=== PATIENT | male | born 1940 | race Caucasian/White ===

== ENCOUNTER 2017-06-29 12:24 | Inpatient (IN) | payer OTHER ==
[~2017-06-29] VITALS: Ht 172.7 cm; Wt 68.0 kg
[2017-06-29] VITALS (10 sets, daily range): BP systolic 96–126; BP diastolic 62–80
--- NOTE | ~2017-06-29 | EKG ---
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: sanket : 1940 Requested By: Amos Nicholas Order Number: [id number] MD: Amos Nicholas Measurements Intervals [place] Rate: 112 P: -47 CO: 156 QRS: -50 QRSD: 102 T: 83 QT: 351 QTc: 479 Interpretive Statements Sinus tachycardia Left anterior fascicular block Borderline low voltage, extremity leads Abnormal R-wave progression, late transition Probable left ventricular hypertrophy Borderline prolonged QT interval Baseline wander in lead(s) V4,V5,V6 Compared to ECG 07/01/2017 18:20:19 Supraventricular tachycardia is no longer present Electronically Signed On 07-08-2017 8:11:17 CDT by Amos Nicholas [email or web address] <ELECTRONICALLY SIGNED> By: Amos Nicholas MD, [facility] 07/08/17810 1 1 Amos Nicholas MD, [facility] /EPI
--- NOTE | ~2017-06-29 | HC ---
[facility] [place] [address] CONSULTATION Name: PURA LINDSEY Room #: [facility] IN M.R.#: [id number] Admission: 06/29/17 Attend Phys: Breanna Hdz MD Discharge: Date of : 40 Report #: [id number] THIS REPORT FOR: //name// CC: Pura Giraldo [facility] PRIMARY CARE PHYSICIAN: Dr. Pura Giraldo. REFERRAL PHYSICIAN: Dr. Hdz. REASON FOR REFERRAL: Acute respiratory failure. HISTORY OF PRESENT ILLNESS: The patient is a 77-year-old white male who was transferred from [facility] for altered mental status and progressive hypoxia. A pulmonary consultation is requested. History was obtained from interview from the patient's family including the who is a good historian. The patient's son also works at [employer] who was able to provide good history. According to family, the patient has had some weight loss ever since his heart surgery in 2012. notes that the patient never had an appetite since the surgery. For the past 6 months, the patient has complaints of progressive dyspnea on exertion along with progressive weight loss of approximately 10 pounds. He was seen by GI. Colonoscopy was not done, but a year ago was unremarkable. He continued to have dysphagia. In May 2017, he was seen by Dr. Cornelius Winslow for progressive dyspnea. A CT chest revealed htmw-[id number] right-sided pleural effusion, mild infiltrates. PFTs revealed restrictive ventilatory defect. 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 Echocardiogram and cardiac evaluation was felt to be unremarkable. The patient was not felt to be in heart failure. With worsening dyspnea and cough, the patient presented to [facility] yesterday. This morning, around 10:00 a.m., the patient's mental status was abnormal. He was less responsive. For that reason, the patient was transferred to [facility]. With the neurologic change, a CT head was performed earlier today. CT head showed increased densities seen in the left basal ganglia. There is decreased attenuation involving the right frontal lobe consistent with an old lacunar infarct. The left basal ganglia changes suggest possible parenchymal [address] [address] CONSULTATION Name: PURA LINDSEY Room #: 245-P ADM IN M.R.#: [id number] Admission: 06/29/17 Attend Phys: Breanna Hdz MD Discharge: Date of : 40 Report #: [id number] hemorrhage. Recommend an MRI. CT chest angiogram was also performed yesterday. This showed no evidence of pulmonary embolus, right lower lobe infiltrates, moderate right-sided pleural effusion is seen, mediastinal lymphadenopathy and hilar adenopathy was noted. Primary interstitial markings were also noted. Presently, he is arousable at times, but appears lethargic, tolerating BiPAP at saturation 100%. PAST MEDICAL HISTORY: As mentioned above, coronary artery disease, coronary bypass surgery in 2012 at [facility], chronic dysphagia since heart surgery, hypertension, dyslipidemia, gastroesophageal reflux disease, recurrent nephrolithiasis, restrictive ventilatory defect from recent pulmonary functions, FEV1 measured 1.25 liters at 46% predicted, FVC measured 1.42 liters at 37% predicted, FEV1/FVC ratio 88%. Recent echocardiogram from 2016 revealed ejection fraction of 50%, grade 2 diastolic dysfunction, bioprosthetic aortic valve, pulmonary artery pressure at 30 mmHg. PAST SURGICAL HISTORY: Includes aortic valve replacement in 2013, coronary artery bypass surgery as mentioned above, prior knee surgery, lithotripsy, eye surgery. ALLERGIES: None. HOME MEDICATIONS: List reviewed. This includes aspirin, Lipitor, Toprol-XL, multivitamins. FAMILY HISTORY: Notable for mother at the age of 79 due to pain cancer. Father had heart disease. SOCIAL HISTORY: The patient has smoked about 30 pack years, quitting in 1981. He is . Denies any alcohol use. REVIEW OF SYSTEMS: Deferred as the patient is on BiPAP along with altered mental status. Additional review of systems should also include recent onset of lower extremity edema when the patient went on a vacation recently. PHYSICAL EXAMINATION: GENERAL: He is arousable, but appears to me somnolent. VITAL SIGNS: Temperature is 99 degrees Fahrenheit, pulse is 100, respiratory rate ____, blood pressure is 120/76 mmHg, saturation 100%. Saturation on room air at [facility] was 78%. HEENT: Normocephalic, atraumatic. NECK: Supple, without any lymphadenopathy or thyromegaly. CHEST: Breath sounds are fair with few scattered crackles in the bases. No [address] [address] CONSULTATION Name: PURA LINDSEY Room #: 245-P [facility] IN M.R.#: [id number] Admission: 06/29/17 Attend Phys: Breanna Hdz MD Discharge: Date of : 40 Report #: [id number] wheezes. CARDIOVASCULAR: PMI is increased at the left lower sternal border. Normal S1, S2. There are no murmurs. I could not hear any gallop. Pulses 2+/4+ bilaterally. ABDOMEN: Soft, no masses felt. GENITOURINARY: Deferred. RECTAL: Deferred. EXTREMITIES: There is no edema, cyanosis or clubbing. MUSCULOSKELETAL: Notable for moderate muscle atrophy. LABORATORY DATA: Portable chest x-ray performed here shows bilateral pleural effusion, ____ sternotomy wires are noted, mild increase I pulmonary vascular markings along with bibasilar infiltrates. D-dimer is 3.2. TSH is 0.63. ABG is pending. Laboratory from [facility] include an arterial blood gas of pH 7.32, pCO2 69, pO2 113 on 2 liters of O2. WBC was 6700, hemoglobin 14.7, platelets are normal. Creatinine is normal. IMPRESSION: 1. Progressive dyspnea on exertion, weakness and apparent weight loss in this 77-year-old white male. CT has suggested possible infarct, possible hemorrhage. There is an old lacunar infarct as mentioned above. The patient has chronic dyspepsia following his heart surgery. Cause is unclear, but with the constellation of symptoms, this suggests neurologic cause rather than primary pulmonary or cardiac cause. He certainly has pulmonary pathology, but I do not think it could explain chronicity of his symptoms. Of note, the patient was seen by GI for possible occult neoplasm workup. This was felt to be less likely. 2. Qkxrk-gq-dzickvo hypercapnic hypoxic respiratory failure. Note that, the patient is partial compensated with a pCO2 of 69. This suggests that weakness is primary cause for his hypoventilation. 3. Bilateral infiltrates, effusion. Note that some of this effusion on the right has been chronic. I favor more heart failure rather than pneumonia, though cannot rule out pneumonia. Need to consider aspiration and Gram-negative in this patient. 4. Weakness. As mentioned above, CT head shows some abnormalities. We will need MRI and consult Neurology. 5. Status post bioprosthetic aortic valve, 2013. [facility] [address] [place] [address] CONSULTATION Name: PURA LINDSEY Room #: 245-P ADM IN ..#: [id number] Admission: 06/29/17 Attend Phys: Breanna Hdz MD Discharge: Date of : 40 Report #: [id number] 6. Coronary artery disease, status post coronary artery bypass surgery. Echocardiogram report from [facility] on 05/14/2017 showed an ejection fraction of 40%, LV function is moderately decreased. RECOMMENDATION: We will continue BiPAP for now. If the patient does not stabilize or worsens, he may need to be intubated. Consult Neurology, obtain MRI. Would treat for presumed pneumonia, but would need to cover for possible aspiration or Gram-negative. We will also continue gentle diuresis. A CT chest has been recently performed showing moderate pleural effusion. I think this is chronic, but may need diagnostic thoracentesis if clinically the patient does not stabilize. Discussed in detail regarding above with the family. Thank you for this consultation. <ELECTRONICALLY SIGNED> By: Krunal Boss MD 06/30/17 1240 1651 51 Krunal Boss MD /nt
--- NOTE | ~2017-06-29 | EKG ---
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1940 Requested By: Amos Nicholas Order Number: [id number] MD: Amos Nicholas Measurements Intervals [place] Rate: 155 P: 0 SC: 112 QRS: -63 QRSD: 101 T: 109 QT: 290 QTc: 466 Interpretive Statements Supraventricular tachycardia Left anterior hemiblock Poor R wave progression Compared to ECG 04/10/2013 08:46:23 supraventricular tachycardia is replaced sinus rhythm Electronically Signed On 07-02-2017 8:48:21 CDT by Amos Nicholas [email or web address] <ELECTRONICALLY SIGNED> By: Amos Nicholas MD, [facility] 0848 19 19 Amos Nicholas MD, [facility] /EPI
--- NOTE | ~2017-06-29 | HC ---
[facility] [place] [address] CONSULTATION Name: PURA LINDSEY Room #: 245-P [facility] IN M.R.#: [id number] Admission: 06/29/17 Attend Phys: Breanna Hdz MD Discharge: Date of : 40 Report #: [id number] THIS REPORT FOR: //name// CC: Pura Hdz DATE OF SERVICE: 07/02/2017 HISTORY OF PRESENT ILLNESS: The patient is a 77-year-old white male admitted through [facility] with increased shortness of breath, was noted to have pneumonia, bilateral pleural effusions, respiratory failure, congestive heart failure. He was unresponsive. Neurology saw him and an MRI confirmed an acute right parietal stroke. He is noted dysphagia with aspiration risk and is on nectar-thickened liquids. He is currently in the intensive care unit on BiPAP. He has had problems with respiratory failure, qyaij-xg-mdxmiqp diastolic heart failure, severe pulmonary hypertension and pleural effusion. We are seeing him in rehabilitation medicine consultation. PAST MEDICAL HISTORY: Includes kidney stone removal, prior coronary artery bypass grafting, history of atrial fibrillation, hypertension, and right rotator cuff surgery. He has had multiple kidney stones. HABITS: Tobacco greater than one year, has quit alcohol, only on special occasion. FAMILY HISTORY: Heart disease and lung disease. SOCIAL HISTORY: Lives in a house with his , did not utilize gait aids, was active as they went camping, and he like to go fishing. Son is closely involved and apparently lives next door. He notes that the would be able to be give some assistance if warranted. REVIEW OF SYSTEMS: Did not offer any current complaints of chest pain, shortness of breath or abdominal discomfort. He is currently on the BiPAP. He has a strong just like for the nectar-thickened liquid diet. No focal extremity pain complaints. PHYSICAL EXAMINATION: GENERAL: He is a 77-year-old white male seen in the intensive care unit, BiPAP is in place. He is alert. VITAL SIGNS: Temperature is 98.2, pulse 121, respirations 13, blood pressure 107/74. HEENT: Facies appeared to be symmetric. EOMs are full. EXTREMITIES: She has functional range of motion of the upper and lower extremities. Of note is the fact that he is left handed. He has full strength without focal weakness of the right upper and right lower extremity. Left [address] [address] CONSULTATION Name: PURA LINDSEY Room #: Count includes the [facility] IN .R.#: [id number] Admission: 06/29/17 Attend Phys: Breanna Hdz MD Discharge: Date of : 40 Report #: [id number] extremity may be more of a 4-4-/5, left lower extremity 4-4-/5. DTRs are trace to 1. He does have bit in consistent when I attempted sensory testing with simultaneous stimulation. Functionally, he did get up yesterday, was min assist with sit to stand and did ambulate up to 40 feet handheld assistance, but was noted to have significant balance, decreased with rectal, pulse and concern for fall potential. He is dependent for lower extremity dressing. Appears to have decreased inside into his deficits and is obvious showing some frustration. ASSESSMENT: A 77-year-old white male with the following problems: 1. Acute right parietal stroke. 2. Dysphagia with aspiration risk on nectar-thickened liquids. 3. Some left-sided decreased coordination. 4. Gait instability with retropulsed tendency and decreased balance. 5. Hypoxemic hypercapnic respiratory failure with aspiration. 6. Acute on chronic diastolic heart failure. 7. Severe pulmonary hypertension. 8. Pleural effusions. 9. Chronic obstructive pulmonary disease. 10. Coronary artery disease with prior coronary artery bypass grafting. 11. History of kidney stones. PLAN: We will be glad to follow along regarding his rehabilitation therapy needs, as he further medically stabilizes in the ICU. He certainly may be a candidate for a short acute in-hospital inpatient rehabilitation stay, once further stabilized. The multiple guidance consultant physicians including Pulmonary Medicine, Cardiology, Internal Medicine Neurology, and Gastroenterology could all follow with him while he is on the acute rehab buenrostro. At this point, we will be glad to follow along with you regarding his rehabilitation therapy needs. ADDENDUM: He does have aortic stenosis and has had a bioprosthetic valve. By: 1038 0022 Diallo Galdamez MD /
--- NOTE | ~2017-06-29 | EEG ---
[facility] [place] [address] ELECTROENCEPHALOGRAM Name: PURA LINDSEY Room #: 245-P ADM IN M.R.#: [id number] Admission: 06/29/17 Attend Phys: Breanna Hdz MD Discharge: Date of : 40 Report #: [id number] THIS REPORT FOR: //name// CC: Pura Hdz DATE OF SERVICE: 06/30/2017 This patient is being evaluated for altered mental status. EEG was done by placing the electrode by standard 10-20 system of electrode placement. Both referential and sequential montages were used for recording. Background activity in this patient's EEG goes to about 11 Hz and 30 microvolts. This is a symmetrical activity. The patient goes to sleep that is associated with bilateral slowing and vertex sharp waves on both sides. Photic stimulation is unremarkable. Throughout the record, no active epileptiform activity was noticed. IMPRESSION: Except for mild intermixed theta range slowing this EEG was unremarkable. Thank you very much for this referral. <ELECTRONICALLY SIGNED> By: Matheus Forrester MD 07/03/17 1416 0820 0826 Matheus Forrester MD /nt
--- NOTE | ~2017-06-29 | 2DMMODE ---
[facility] [place] [address] 2 D/M-MODE ECHOCARDIOGRAM Name: PURA LINDSEY Room #: 245-P ADM IN .R.#: [id number] Admission: 06/29/17 Attend Phys: Breanna Hdz MD Discharge: Date of : 40 Date of Service: 06/30/17 0954 Report #: [id number] THIS REPORT FOR: //name// APPROVED REPORT Study performed: 06/30/2017 08:17:27 EXAM: Comprehensive 2D, Doppler, and color-flow Echocardiogram Patient Location: ICU Room #: [facility] Status: routine BSA: 1.81 HR: 112 bpm BP: 115/68 mmHg Rhythm: Tachycardia Other Information Study Quality: Good Indications CHF. Hx: CABG, AVR, COPD, PHTN 2D Dimensions RVDd: 39.15 mm LVEF(%): 41.82 (>50%) IVSd: 9.65 (7-11mm) LVOT Diam: 19.58 (18-24mm) LVDd: 47.44 mm PWd: 9.65 (7-11mm) Ascending Ao: 29.24 (22-36mm) LVDs: 37.72 (25-40mm) Aortic Root: 31.92 mm Fox's LVEF: 41.82 % Volumes Left Atrial Volume (Systole) Single Plane 4CH: 73.27 mL Single Plane 2CH: 57.79 mL LA ESV Index: 39.00 mL/m2 Aortic Valve AoV Peak Aristeo.: 2.89 m/s AO Peak Gr.: 33.37 mmHg LVOT Max P.82 mmHg AO Mean Gr.: 17.87 mmHg AO V2 Mean: 2.03 m/s LVOT Max V: 0.98 m/s AO V2 VTI: 47.14 cm ZOHAIB Vmax: 1.02 cm2 Mitral Valve [facility] [place] [address] 2 D/M-MODE ECHOCARDIOGRAM Name: PURA LINDSEY Room #: 245-P [facility]..#: [id number] Admission: 06/29/17 Attend Phys: Breanna Hdz MD Discharge: Date of : 40 Date of Service: 06/30/17 0954 Report #: [id number] MV Decel. Time: 213.35 ms MV E Max Aristeo.: 1.74 m/s IVRT: 43.83 ms Pulmonary Valve PV Peak Aristeo.: 1.41 m/s PV Peak Gr.: 7.90 mmHg Pulmonary Vein P Vein S: 0.26 m/s P Vein D: 0.40 m/s P Vein S/D Ratio: 0.65 Tricuspid Valve TR Peak Aristeo.: 3.86 m/s RAP Estimate: 10.00 mmHg TR Peak Gr.: 59.67 mmHg PA Pressure: 70.00 mmHg Left Ventricle The left ventricle is normal size. Regional wall motion is not well visualized but grossly normal. There is normal left ventricular wall thickness. Left ventricular systolic function is at lower limits of normal. LVEF is 45-50%. This study is not technically sufficient to allow evaluation of the LV diastolic function. Right Ventricle The right ventricle is normal size. The right ventricular systolic function is low normal. Atria Left atrium is dilated. Right atrium is dilated. Aortic Valve Bioprosthetic aortic valve is present. Size and manufacture unknown. Peak velocity of 2.9m/s with a peak gradient of 34mmHg and a mean of 17mmHg. Trace aortic regurgitation. Mitral Valve Mitral valve leaflets are mildly thickened. Mild mitral annular calcification. Moderate mitral regurgitation. Tricuspid Valve The tricuspid valve is normal in structure. There is moderate tricuspid regurgitation. The right atrial pressure is estimated at 10 mmHg. There is severe pulmonary hypertension with an estimated PAP of 70mmHg. [address] [address] 2 D/M-MODE ECHOCARDIOGRAM Name: PURA LINDSEY Room #: 245-P [facility] IN ..#: [id number] Admission: 06/29/17 Attend Phys: Breanna Hdz MD Discharge: Date of : 40 Date of Service: 06/30/17 0954 Report #: [id number] Pulmonic Valve The pulmonary valve is normal in structure. Mild pulmonic regurgitation. Great Vessels The aortic root is normal in size. The ascending aorta is normal in size. IVC is normal in size and collapses <50% with inspiration. Pericardium No pericardial effusion <Conclusion> Left ventricular systolic function is at lower limits of normal. Regional wall motion is not well visualized but grossly normal. LVEF is 45-50%. Both atria are dilated. Bioprosthetic aortic valve is present. Peak velocity of 2.9m/s with a peak gradient of 34mmHg and a mean of 17mmHg, probably normal depending on type and size of valve. Trace aortic regurgitation. Mitral valve leaflets are mildly thickened. Mild mitral annular calcification. Moderate mitral regurgitation. There is severe pulmonary hypertension with an estimated PAP of 70mmHg. No pericardial effusion <ELECTRONICALLY SIGNED> By: Amos Nicholas MD, FACC 06/30/17 0954 0954 09 Amos Nicholas MD, FACC /INF
--- NOTE | ~2017-06-29 | P ---
[facility] [place] [address] PROCEDURE REPORT Name: PURA LINDSEY Room #: 458-P [facility] IN M.R.#: [id number] Admission: 06/29/17 Attend Phys: Breanna Hdz MD Discharge: Date of : 40 Report #: [id number] THIS REPORT FOR: //name// CC: Amos Nicholas MD [facility] Pura Govea MD BRIEF HISTORY: The patient is a 77-year-old male with progressively worsening dysphagia with associated weight loss. He also has had a recent CVA. PREOPERATIVE DIAGNOSES: Dysphagia and weight loss. POSTOPERATIVE DIAGNOSES: Dysphagia and weight loss. MEDICATIONS: Deep sedation with propofol per anesthesia. SPECIMEN: None. ESTIMATED BLOOD LOSS: 3 mL. PROCEDURE: EGD with Nettles dilation of the esophagus and percutaneous endoscopic gastrostomy tube placement. FINDINGS: Prior to propofol sedation, the procedure of endoscopy, dilation, and PEG tube placement discussed with the patient and family as well as potential risks, benefits, and complications. He indicates he understands and desires to proceed. With the patient in left lateral decubitus position, the 5skillsi video endoscope was inserted in the cervical esophagus under direct vision without difficulty. Examination of this organ through its entire length revealed normal esophageal mucosa down to the squamocolumnar junction. Squamocolumnar junction was unremarkable. No strictures or masses were seen. No obstructing lesions were seen in the esophagus. No abnormalities to explain dysphagia were identified. Scope was advanced into the stomach, which was examined on end view as well as retroflexed views. The gastric mucosa was normal on end view as well as retroflexed views. No retained solids or liquids were seen. No mass lesions were seen. No ulcers were seen. Pylorus was normal. Duodenal bulb and postbulbar sweep were inspected and noted to be within normal limits. At that point, the scope was slowly withdrawn and careful circumferential views were obtained. Subsequently, the patient was dilated with passage of a 60-Hebrew Nettles dilator. The dilator was very slowly passed through the entire length of the esophagus. This patient was then placed in the supine position with head and chest raised about 20 degrees. The endoscope was reinserted and the esophagus through its entire length revealed mucosa be intact. There was no evidence of significant mucosal tearing from the dilation. The scope was [facility] [address] [place] [address] PROCEDURE REPORT Name: PURA LINDSEY Room #: 458-P [facility] IN ..#: [id number] Admission: 06/29/17 Attend Phys: Breanna Hdz MD Discharge: Date of : 40 Report #: [id number] advanced into the stomach and was fully insufflated with air. The light was then aimed against the anterior gastric wall and good transilluminating light was seen. Subsequently, skin was prepped and draped using usual sterile technique. The skin was infiltrated with lidocaine and using a SafeTrack technique, skinny needle was advanced in the gastric lumen under direct endoscopic vision without difficulty. Subsequently, a 1-cm skin incision was made and advanced into the gastric lumen under direct endoscopic vision without difficulty. Guidewire was inserted, retrieved, and pulled out from the mouth. Subsequently, a 20-Hebrew feeding gastrostomy tube was advanced over the wire and leading edges were seen coming through the incision. The tube was grasped and pulled into position. The endoscope was reinserted and final adjustments were made under direct endoscopic vision. The external restraining device was applied. The patient tolerated the procedure well. DISPOSITION: PEG tube placed without difficulty. If the patient does well, we will start PEG tube feedings in about 8 hours. Also, he was dilated with regards to his dysphagia. Hopefully, this will help and result in improve swallowing. <ELECTRONICALLY SIGNED> By: Riley Landin MD 07/08/17 1601 1307 [id number] Riley Landin MD /nt
--- NOTE | ~2017-06-29 | HC ---
[facility] [place] [address] CONSULTATION Name: PURA LINDSEY Room #: 458-P [facility] IN ..#: [id number] Admission: 06/29/17 Attend Phys: Breanna Hdz MD Discharge: 07/11/17 Date of : 40 Report #: [id number] THIS REPORT FOR: //name// CC: Pura Hdz REASON FOR CONSULTATION: Shortness of breath. HISTORY OF PRESENT ILLNESS: The patient is a 77-year-old gentleman with a history of aortic stenosis for which he underwent a #23 Danny pericardial aortic valve replacement in 2012, this was with combined multivessel bypass surgery for significant left main disease with a left internal mammary to the LAD and a sequential vein graft the first and second marginal branches. At that time, he underwent right and left Condon-Maze ablation and left atrial appendage ligation. He now presents after a trip to [place], [place] where he developed increasing shortness of breath and orthopnea. He denies fevers, chills or cough. He has had about a 40-pound weight loss since his surgery in 2012. He denies fevers or chills. No night sweats. He denies chest heaviness, pressure or ischemic type symptoms. No history of near syncope or syncope. No palpitations. MEDICATIONS: Include aspirin, atorvastatin 80 mg daily, metoprolol 25 mg daily. PAST MEDICAL HISTORY: Notable for coronary artery disease with bypass surgery, aortic valve replacement, bilateral cataract excision, BPH, right rotator cuff surgery septal repair, moderate pulmonary hypertension. SOCIAL HISTORY: He is a former smoker, . FAMILY HISTORY: Notable for premature coronary artery disease. REVIEW OF SYSTEMS: All systems negative except as that noted above. PHYSICAL EXAMINATION: GENERAL: Reveals a pleasant gentleman in no distress, face shield is present, is alert and oriented. VITAL SIGNS: Blood pressure is 115/68, heart rate of 110 and regular, temperature is 99.5 degrees, 5 feet 8 inches tall, 159 pounds. HEENT: There are neither xanthelasma, subcutaneous xanthomata, oral mucosal or digital cyanosis or kyphoscoliosis present. CHEST: Reveals diminished breath sounds at both bases. CARDIAC: Regular rate and rhythm with 1-2/6 systolic ejection murmur at the base. ABDOMEN: Soft and nontender. EXTREMITIES: Without cyanosis, clubbing or edema. Radial pulses are 2+. NEUROLOGIC: Alert with a nonfocal exam. [facility] [address] [place] [address] CONSULTATION Name: PURA LINDSEY Room #: 458-P [facility] IN [facility]#: [id number] Admission: 06/29/17 Attend Phys: Breanna Hdz MD Discharge: 07/11/17 Date of : 40 Report #: [id number] LABORATORY DATA: Sodium is 139, potassium 4.3, creatinine 0.9. ProBNP of 3153. White count 7.7, hemoglobin 13, hematocrit 42, platelet count 144. Chest x-ray demonstrates pulmonary venous congestion. EKG, sinus tachycardia with poor R-wave progression. IMPRESSION: 1. Hypercarbic hypoxemic respiratory failure. 2. Diastolic heart failure. 3. Coronary artery disease with prior bypass. 4. Prior bioprosthetic aortic valve replacement. 5. Chronic obstructive pulmonary disease; moderate pulmonary hypertension. 6. Dyslipidemia. RECOMMENDATIONS: 1. Intravenous diuretic therapy. 2. Echocardiogram with Doppler. 3. Minimize IV fluid administration. 4. Cardiac enzymes. Further thoughts will be forthcoming based on this evaluation. Thank you for asking me to participate in the patient's care. <ELECTRONICALLY SIGNED> By: Amos Nicholas MD, [facility] 07/12/17 1555 0754 0926 Amos Nicholas MD, FACC /nt
[~2017-06-29 12:24] MED LIST: AMLODIPINE BESYL5 MG PO; ASPIRIN325 PO; ASPIRIN81 M2 PO; COUMADIN 5 MG TA5 M1 PO; FISH OIL 1,0001 EAC5 PO; FISHOIL PO; FOSAMAX 70 MG T70 M1 PO; GLUCOSAMINE CH1 EAC2 PO; HYDROCODON-ACE1 EAC7 PO; LASIX 40 MG TAB40 M1 PO; LIPITOR80 MG PO; METOPROLOL SUCC25 M1 PO; MOBIC7.5 MG PO; MOM PO; MULTIVITAMINS PO; OXYCODONE-ACET1 EACH PO; PACERONE 200 M200 M1 PO; POTASSIUM20 PO; PROPAFENONE 15150 MG PO; TUMS PO; UNICOMPLEX M TA1 TA1 PO; VITAMIN D1000 UNI1 PO; VITAMIN D35000 UNI1 PO; VITAMIN D400 UNI1 PO; VYTORIN 10-801 EACH PO
[2017-06-29 15:53] LABS: ABSOLUTE NEUTROPHILS 6.7 thou/uL (1.4-8.2); BASOPHILS 0.6 % (0.0-2.0); EOSINOPHILS 0.3 % (0.0-3.0); HEMATOCRIT 42.8 % (42.0-52.0); HEMOGLOBIN 13.8 gm/dL (14.0-18.0); LYMPHOCYTES 10.5 % (24.0-44.0); MCH 29.5 pg (26.0-34.0); MCHC 32.3 g/dL (28.0-37.0); MCV 91.4 fL (80.0-100.0); MONOCYTES 11.3 % (1.0-8.0); PLATELET COUNT 156 thou/uL (150-400); POLYS 77.3 % (36.0-66.0); RBC 4.69 mil/uL (4.50-6.00); RDW 15.2 % (10.5-14.5); WBC 8.6 thou/uL (4.0-11.0)
[2017-06-29 15:57] LABS: MANUAL DIFF NO
[2017-06-29 16:06] LABS: ALBUMIN 3.1 g/dL (3.4-5.0); ALKALINE PHOSPHATASE 128 U/L (46-116); ANION GAP 7 mmol/L (7-16); BUN 11 mg/dL (7-18); CALCIUM 8.9 mg/dL (8.5-10.1); CHLORIDE 100 mmol/L (98-107); CHOLESTEROL 143 mg/dL (<200); CO2 35 mmol/L (21-32); CREATININE 0.8 mg/dL (0.7-1.3); GLUCOSE 99 mg/dL (74-106); HDL CHOLESTEROL 56 mg/dL (>40); LDL CHOLESTEROL 78 mg/dL (<100); POTASSIUM 4.4 mmol/L (3.5-5.1); SGOT 48 U/L (15-37); SGPT 52 U/L (30-65); SODIUM 142 mmol/L (136-145); TC:HDL 2.6 Ratio (Not establshd); TOTAL BILIRUBIN 0.6 mg/dL (<0.1-1.0); TRIGLYCERIDE 48 mg/dL (<150); VLDL 10 mg/dL (<40)
[2017-06-29 17:16] LABS: ABG SAMPLE TYPE ARTERIAL; BE(vivo) 2.9 mmol/L (-2 to +3); HCO3 32.4 mmol/L (22.0-26.0); LACTATE 0.94 mmol/L (0.5-2.0); O2(CT) 19.8 mL/dL (15.0-23.0); O2Hb 95.7 % (92.0-98.0); PO2 107.2 mmHg (80.0-100.0); tCO2 34.7 mmol/L (24.0-30.0)
[2017-06-29 17:17] LABS: PCO2 73.9 mmHg (35.0-45.0); STICK SITE R.RADIAL
[2017-06-29 20:56] LABS: ABG SAMPLE TYPE ARTERIAL; BE(vivo) 5.9 mmol/L (-2 to +3); HCO3 33.9 mmol/L (22.0-26.0); O2(CT) 18.2 mL/dL (15.0-23.0); PCO2 63.6 mmHg (35.0-45.0); PO2 59.4 mmHg (80.0-100.0); pH 7.344 (7.360-7.450); sO2 88.6 % (92.0-98.0); tCO2 35.8 mmol/L (24.0-30.0)
[2017-06-29 20:57] LABS: STICK SITE L.BRACHIAL
[2017-06-30] VITALS (21 sets, daily range): BP systolic 96–121; BP diastolic 55–83
[2017-06-30 05:02] LABS: HEMATOCRIT 42.3 % (42.0-52.0); HEMOGLOBIN 13.8 gm/dL (14.0-18.0); MCH 29.9 pg (26.0-34.0); MCHC 32.7 g/dL (28.0-37.0); MCV 91.4 fL (80.0-100.0); PLATELET COUNT 144 thou/uL (150-400); RBC 4.62 mil/uL (4.50-6.00); RDW 15.4 % (10.5-14.5); WBC 7.7 thou/uL (4.0-11.0)
[2017-06-30 05:17] LABS: MANUAL DIFF YES
[2017-06-30 05:35] LABS: ALBUMIN 3.1 g/dL (3.4-5.0); CREATININE 0.9 mg/dL (0.7-1.3); POTASSIUM 4.3 mmol/L (3.5-5.1)
[2017-06-30 05:40] LABS: ABG SAMPLE TYPE ARTERIAL; BE(vivo) 5.8 mmol/L (-2 to +3); LACTATE 1.11 mmol/L (0.5-2.0); O2(CT) 19.1 mL/dL (15.0-23.0); O2Hb 92.9 % (92.0-98.0); PO2 80.1 mmHg (80.0-100.0); sO2 94.2 % (92.0-98.0); tCO2 37.2 mmol/L (24.0-30.0)
[2017-06-30 05:41] LABS: PCO2 73.1 mmHg (35.0-45.0); STICK SITE L.BRACHIAL; pH 7.298 (7.360-7.450)
[2017-06-30 05:46] LABS: Pressure Support 15 cm H20
[2017-06-30 08:33] LABS: ABSOLUTE NEUTROPHILS 5.3 thou/uL (1.4-8.2); TOTAL CELL COUNT 100
[2017-06-30 08:34] LABS: ANISOCYTOSIS 1+
[2017-07-01] VITALS (32 sets, daily range): BP systolic 74–126; BP diastolic 44–88
[2017-07-01 03:55] LABS: HEMATOCRIT 40.5 % (42.0-52.0); HEMOGLOBIN 13.5 gm/dL (14.0-18.0); MCH 30.1 pg (26.0-34.0); MCHC 33.3 g/dL (28.0-37.0); MCV 90.2 fL (80.0-100.0); PLATELET COUNT 148 thou/uL (150-400); RBC 4.49 mil/uL (4.50-6.00); RDW 14.8 % (10.5-14.5); WBC 7.5 thou/uL (4.0-11.0)
[2017-07-01 03:59] LABS: MANUAL DIFF YES
[2017-07-01 04:27] LABS: CALCIUM 8.8 mg/dL (8.5-10.1); CREATININE 0.9 mg/dL (0.7-1.3); POTASSIUM 3.6 mmol/L (3.5-5.1)
[2017-07-01 09:07] LABS: ABSOLUTE NEUTROPHILS 5.5 thou/uL (1.4-8.2); PLATELET ESTIMATE NORMAL; TOTAL CELL COUNT 100
[2017-07-01 23:36] LABS: ABG SAMPLE TYPE ARTERIAL; BE(vivo) 12.8 mmol/L (-2 to +3); HCO3 44.6 mmol/L (22.0-26.0); LACTATE 0.84 mmol/L (0.5-2.0); O2(CT) 19.1 mL/dL (15.0-23.0); O2Hb 91.7 % (92.0-98.0); PO2 72.1 mmHg (80.0-100.0); sO2 91.2 % (92.0-98.0); tCO2 47.6 mmol/L (24.0-30.0)
[2017-07-01 23:37] LABS: ABG COMMENT BIPAP 15/ 5 R-10; PCO2 98.7 mmHg (35.0-45.0); Pressure Support 10 cm H20; STICK SITE R.BRACHIAL; pH 7.273 (7.360-7.450)
[2017-07-02] VITALS (39 sets, daily range): BP systolic 90–115; BP diastolic 55–79
[2017-07-02 03:10] LABS: HEMATOCRIT 40.6 % (42.0-52.0); HEMOGLOBIN 13.3 gm/dL (14.0-18.0); MCH 29.9 pg (26.0-34.0); MCHC 32.7 g/dL (28.0-37.0); MCV 91.4 fL (80.0-100.0); RBC 4.44 mil/uL (4.50-6.00); RDW 14.9 % (10.5-14.5); WBC 8.4 thou/uL (4.0-11.0)
[2017-07-02 03:24] LABS: BUN 13 mg/dL (7-18); CALCIUM 9.1 mg/dL (8.5-10.1); CHLORIDE 99 mmol/L (98-107); CREATININE 0.7 mg/dL (0.7-1.3); GLUCOSE 124 mg/dL (74-106); POTASSIUM 3.9 mmol/L (3.5-5.1); SODIUM 145 mmol/L (136-145)
[2017-07-02 03:27] LABS: CO2 > 45 mmol/L (21-32)
[2017-07-02 08:12] LABS: ABG SAMPLE TYPE ARTERIAL; BE(vivo) 14.7 mmol/L (-2 to +3); HCO3 46.7 mmol/L (22.0-26.0); LACTATE 1.04 mmol/L (0.5-2.0); O2(CT) 20.2 mL/dL (15.0-23.0); O2Hb 97.3 % (92.0-98.0); PO2 230.4 mmHg (80.0-100.0); sO2 99.3 % (92.0-98.0); tCO2 49.9 mmol/L (24.0-30.0)
[2017-07-02 08:13] LABS: PCO2 102.7 mmHg (35.0-45.0); STICK SITE R.RADIAL; pH 7.276 (7.360-7.450)
[2017-07-02 09:17] LABS: URINE BLOOD 3+ (Negative); URINE COLOR YELLOW; URINE GLUCOSE-RANDOM* NEGATIVE (Negative); URINE KETONES TRACE (Negative); URINE LEUKOCYTES-REFLEX NEGATIVE (Negative); URINE PROTEIN (DIPSTICK) 1+ (Negative); URINE SPECIFIC GRAVITY >= 1.030 (1.003-1.035); URINE UROBILINOGEN 0.2 E.U./dl (0.2-1.0)
[2017-07-02 09:20] LABS: ICTOTEST (BILI CONFIRMATORY) Negative (Negative); URINE BILIRUBIN NEGATIVE (Negative)
[2017-07-02 09:46] LABS: CASTS None Seen /LPF (None Seen); CRYSTALS None Seen /LPF (None Seen); SQUAMOUS None Seen /LPF (0-3); URINE RBC >20 Many /HPF (0-2); URINE WBC-REFLEX 0-5 Rare /HPF (0-5)
[2017-07-02 12:57] LABS: ABG SAMPLE TYPE ARTERIAL; BE(vivo) 16.5 mmol/L (-2 to +3); HCO3 45.9 mmol/L (22.0-26.0); LACTATE 1.75 mmol/L (0.5-2.0); O2(CT) 18.3 mL/dL (15.0-23.0); O2Hb 92.8 % (92.0-98.0); PO2 70.4 mmHg (80.0-100.0); pH 7.377 (7.360-7.450); sO2 92.9 % (92.0-98.0); tCO2 48.4 mmol/L (24.0-30.0)
[2017-07-02 12:58] LABS: ABG COMMENT BIPAP 15/5; STICK SITE R.RADIAL
[2017-07-03] VITALS (16 sets, daily range): BP systolic 88–133; BP diastolic 61–106
[2017-07-03 05:19] LABS: ABSOLUTE NEUTROPHILS 4.1 thou/uL (1.4-8.2); BASOPHILS 0.5 % (0.0-2.0); EOSINOPHILS 1.8 % (0.0-3.0); HEMATOCRIT 36.9 % (42.0-52.0); HEMOGLOBIN 12.2 gm/dL (14.0-18.0); LYMPHOCYTES 17.2 % (24.0-44.0); MCH 30.1 pg (26.0-34.0); MCV 91.1 fL (80.0-100.0); MONOCYTES 11.1 % (1.0-8.0); PLATELET COUNT 119 thou/uL (150-400); POLYS 69.4 % (36.0-66.0); RBC 4.05 mil/uL (4.50-6.00)
[2017-07-03 05:23] LABS: MANUAL DIFF NO
[2017-07-03 05:30] LABS: ABG SAMPLE TYPE ARTERIAL; BE(vivo) 14.1 mmol/L (-2 to +3); HCO3 41.8 mmol/L (22.0-26.0); LACTATE 0.97 mmol/L (0.5-2.0); O2(CT) 18.9 mL/dL (15.0-23.0); PO2 81.7 mmHg (80.0-100.0); STICK SITE L.RADIAL; sO2 95.8 % (92.0-98.0); tCO2 43.9 mmol/L (24.0-30.0)
[2017-07-03 13:09] LABS: ALPHA TOCOPHEROL 11.4 mg/L (5.3-17.5)
[2017-07-04 00:25] VITALS: BP 104/68
[2017-07-04 04:12] VITALS: BP 120/62
[2017-07-04 06:06] LABS: ABSOLUTE NEUTROPHILS 4.2 thou/uL (1.4-8.2); BASOPHILS 0.4 % (0.0-2.0); EOSINOPHILS 1.3 % (0.0-3.0); HEMATOCRIT 38.2 % (42.0-52.0); HEMOGLOBIN 12.6 gm/dL (14.0-18.0); MCH 30.1 pg (26.0-34.0); MCHC 33.1 g/dL (28.0-37.0); MONOCYTES 10.9 % (1.0-8.0); PLATELET COUNT 130 thou/uL (150-400); POLYS 73.4 % (36.0-66.0); WBC 5.7 thou/uL (4.0-11.0)
[2017-07-04 06:08] LABS: MANUAL DIFF NO
[2017-07-04 06:13] LABS: CALCIUM 8.8 mg/dL (8.5-10.1); CREATININE 0.8 mg/dL (0.7-1.3); MAGNESIUM 2.2 mg/dL (1.8-2.4); POTASSIUM 3.6 mmol/L (3.5-5.1)
[2017-07-04 07:44] VITALS: BP 137/79
[2017-07-04 08:13] LABS: ABG SAMPLE TYPE ARTERIAL; BE(vivo) 12.7 mmol/L (-2 to +3); LACTATE 1.18 mmol/L (0.5-2.0); O2(CT) 18.8 mL/dL (15.0-23.0); O2Hb 90.5 % (92.0-98.0); PCO2 55.7 mmHg (35.0-45.0); PO2 60.9 mmHg (80.0-100.0); STICK SITE R.RADIAL; pH 7.463 (7.360-7.450); sO2 92.1 % (92.0-98.0); tCO2 40.7 mmol/L (24.0-30.0)
[2017-07-04 12:22] VITALS: BP 110/75
[2017-07-04 19:40] VITALS: BP 112/73
[2017-07-05 03:30] VITALS: BP 106/68
[2017-07-05 06:17] LABS: CALCIUM 9.1 mg/dL (8.5-10.1); CREATININE 0.7 mg/dL (0.7-1.3); POTASSIUM 3.3 mmol/L (3.5-5.1)
[2017-07-05 07:52] VITALS: BP 112/73
[2017-07-05 12:00] VITALS: BP 90/57
[2017-07-05 13:49] LABS: MAGNESIUM 2.3 mg/dL (1.8-2.4); POTASSIUM 3.9 mmol/L (3.5-5.1)
[2017-07-05 15:23] VITALS: BP 106/73
[2017-07-05 19:30] VITALS: BP 102/62
[2017-07-06 04:00] VITALS: BP 109/77
[2017-07-06 05:49] LABS: ALBUMIN 2.7 g/dL (3.4-5.0); CREATININE 0.9 mg/dL (0.7-1.3); POTASSIUM 3.9 mmol/L (3.5-5.1); TOTAL BILIRUBIN 0.9 mg/dL (<0.1-1.0); TOTAL PROTEIN 6.2 g/dL (6.4-8.2)
[2017-07-06 07:27] VITALS: BP 102/71
[2017-07-06 17:13] VITALS: BP 104/65
[2017-07-06 19:20] VITALS: BP 106/67
[2017-07-07 04:05] VITALS: BP 106/69
[2017-07-07 13:18] VITALS: BP 98/61
[2017-07-07 20:35] VITALS: BP 106/65
[2017-07-08 04:04] VITALS: BP 112/78
[2017-07-08 08:43] VITALS: BP 111/77
[2017-07-08 17:11] VITALS: BP 117/69
[2017-07-08 19:07] VITALS: BP 101/66
[2017-07-08 23:05] VITALS: BP 111/71
[2017-07-09 03:26] VITALS: BP 96/67
[2017-07-09 06:11] LABS: HEMATOCRIT 36.4 % (42.0-52.0); HEMOGLOBIN 12.2 gm/dL (14.0-18.0); MCH 29.9 pg (26.0-34.0); MCHC 33.6 g/dL (28.0-37.0); MCV 89.1 fL (80.0-100.0); RBC 4.09 mil/uL (4.50-6.00); RDW 14.6 % (10.5-14.5); WBC 8.4 thou/uL (4.0-11.0)
[2017-07-09 06:21] LABS: ALBUMIN 2.7 g/dL (3.4-5.0); CALCIUM 8.9 mg/dL (8.5-10.1); CREATININE 0.8 mg/dL (0.7-1.3); POTASSIUM 4.3 mmol/L (3.5-5.1)
[2017-07-09 08:07] VITALS: BP 104/72
[2017-07-09] MEDS ORDERED: ALBUTEROL2.5 MG/0.5 INH (10:48)
[2017-07-09] MEDS ORDERED: ZOSYN 3.3753.375 GM IV (10:48)
[2017-07-09] MEDS ORDERED: FLOMAX0.4 MG PO (10:48)
[2017-07-09 12:31] VITALS: BP 107/82
[2017-07-09 17:43] VITALS: BP 105/85
[2017-07-09 19:46] VITALS: BP 113/70
[2017-07-10 03:42] VITALS: BP 104/61
[2017-07-10 06:40] LABS: ALBUMIN 2.7 g/dL (3.4-5.0); ANION GAP < 0 mmol/L (7-16); BUN 27 mg/dL (7-18); CALCIUM 9.1 mg/dL (8.5-10.1); CHLORIDE 96 mmol/L (98-107); CO2 41 mmol/L (21-32); CREATININE 0.9 mg/dL (0.7-1.3); GLUCOSE 169 mg/dL (74-106); PHOSPHORUS 2.9 mg/dL (2.5-4.9); POTASSIUM 4.3 mmol/L (3.5-5.1); SODIUM 136 mmol/L (136-145)
[2017-07-10 07:38] VITALS: BP 119/80
[2017-07-10] MEDS ORDERED: KLOR-CON M2020 MEQ PO (09:55)
[2017-07-10] MEDS ORDERED: SENNA-TIME S T1 EACH PO (09:55)
[2017-07-10] MEDS ORDERED: ARTIFICIAL TEA1 EACH OPHTHALMIC (09:55)
[2017-07-10] MEDS ORDERED: DEMADEX20 MG PO (09:55)
[2017-07-10] MEDS ORDERED: ENOXAPARIN40 MG/0.1 SUBQ (09:55)
[2017-07-10] MEDS ORDERED: PEPCID20 MG PO (09:55)
[2017-07-10 13:59] VITALS: BP 135/75
[2017-07-10 17:53] VITALS: BP 110/73
[2017-07-10 19:45] VITALS: BP 112/62
[2017-07-11 04:00] VITALS: BP 117/81
== END 2017-07-11 11:52 | DRG 177 ==
LOC: ICU 12:24 → 4W 07-03 15:23
PROVIDERS: Hospitalist; Internal Medicine; Internal Medicine Endocrinology, Diabetes & Metabolism; Internal Medicine Pulmonary Disease; Psychiatry & Neurology Neurology
DX: J69.0 Pneumonitis due to inhalation of food and vomit (principal); J96.22 Acute and chronic respiratory failure with hypercapnia; I50.33 Acute on chronic diastolic (congestive) heart failure; J96.21 Acute and chronic respiratory failure with hypoxia; E43 Unspecified severe protein-calorie malnutrition; I63.9 Cerebral infarction, unspecified; G93.40 Encephalopathy, unspecified; E87.3 Alkalosis; J90 Pleural effusion, not elsewhere classified; E87.0 Hyperosmolality and hypernatremia; I25.10 Atherosclerotic heart disease of native coronary artery without angina pectoris; E78.5 Hyperlipidemia, unspecified; K21.9 Gastro-esophageal reflux disease without esophagitis; J44.9 Chronic obstructive pulmonary disease, unspecified; I27.2 Other secondary pulmonary hypertension; I11.0 Hypertensive heart disease with heart failure; Z68.22 Body mass index [BMI] 22.0-22.9, adult; I35.0 Nonrheumatic aortic (valve) stenosis; R31.0 Gross hematuria; I48.0 Paroxysmal atrial fibrillation; K22.2 Esophageal obstruction; Z95.1 Presence of aortocoronary bypass graft; Z80.9 Family history of malignant neoplasm, unspecified; Z83.3 Family history of diabetes mellitus; Z87.891 Personal history of nicotine dependence; Z95.2 Presence of prosthetic heart valve; Z82.49 Family history of ischemic heart disease and other diseases of the circulatory system; Z87.442 Personal history of urinary calculi; Z79.82 Long term (current) use of aspirin; Z79.899 Other long term (current) drug therapy
CPT/HCPCS: 10045; 10078; 62110; 62900; 70005

== ENCOUNTER 2017-07-06 10:29 | Inpatient (IN) | payer OTHER ==
[~2017-07-06] VITALS: Ht 170.2 cm; Wt 68.9 kg
--- NOTE | ~2017-07-06 | EKG ---
[address] [place] [address] ELECTROCARDIOGRAM REPORT Name: PURA LINDSEY Room #: 506-1 ADM IN M.R.#: [id number] Admission: 07/11/17 Attend Phys: Diallo Galdamez MD Discharge: Date of : 40 Report #: [id number] THIS REPORT FOR: //name// [facility] Test Date: 2017-07-20 Test Time: 09:12:04 Pat Name: PURA LINDSEY Department: Room: 506 1 Gender: M [employer] Operator: LIDYA : 1940 Requested By: Pura Preciado Order Number: [id number] MD: Measurements Intervals [place] Rate: 90 P: 84 [place]: 157 QRS: -36 QRSD: 112 T: 89 QT: 377 QTc: 462 Interpretive Statements Sinus rhythm Ventricular premature complex Borderline IVCD with LAD Anterior infarct, old Nonspecific T abnormalities, lateral leads Baseline wander in lead(s) V6 Compared to ECG 07/13/2017 08:03:17 Ventricular premature complex(es) now present Sinus tachycardia no longer present Left-axis deviation no longer present Myocardial infarct finding still present T-wave abnormality still present [email or web address] By: 1 1 Epiphany Epiphany, /LUDA
--- NOTE | ~2017-07-06 | EKG ---
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: DARIEL : 1940 Requested By: Issa Norton Order Number: [id number] MD: Issa Norton Measurements Intervals [place] Rate: 139 P: 243 MD: 114 QRS: -37 QRSD: 98 T: 106 QT: 306 QTc: 466 Interpretive Statements Sinus or ectopic atrial tachycardia Left axis deviation Nonspecific T abnormalities, lateral leads Compared to ECG 07/05/2017 08:12:51 Left-axis deviation now present T-wave abnormality now present Sinus tachycardia no longer present Left anterior fascicular block no longer present Electronically Signed On 07-13-2017 10:52:58 CDT by Issa Norton [email or web address] <ELECTRONICALLY SIGNED> By: Issa Norton MD 07/13/17 1052 1206 1206 Issa Norton MD /EPI
--- NOTE | ~2017-07-06 | HC ---
[facility] [place] [address] CONSULTATION Name: PURA LINDSEY Room #: 506-1 ADM IN M.R.#: [id number] Admission: 07/11/17 Attend Phys: Diallo Galdamez MD Discharge: Date of : 40 Report #: [id number] THIS REPORT FOR: //name// CC: Diallo Giraldo DATE OF SERVICE: 07/13/2017 NEUROBEHAVIORAL STATUS EXAM ATTENDING PHYSICIAN: Diallo Galdamez MD RENEWABLE ENERGY TRADER: Nehemiah Haas, PhD CLINICAL PRESENTATION: The patient is a 77-year-old male admitted to rehab unit at [facility] for comprehensive inpatient rehabilitation program to improve functional mobility, activities of daily living and self-care and mental status secondary to cerebrovascular accident. The patient has history of dysphasia with aspiration risk. He had an acute right parietal stroke. He is status post PEG tube with esophageal dilation and on tube feedings. Additional diagnoses include chronic right effusion, acute on chronic respiratory failure with chronic hypercapnia, pulmonary hypertension secondary to lung and heart disease, chronic diastolic heart failure, paroxysmal atrial fibrillation, prior coronary artery bypass graft as well as a remote bioprosthetic aortic valve replacement, dyslipidemia, renal stones, history of hematuria, which has improved. A complete description of his medical condition, history and medications can be found in his medical record. Neuropsychological consultation was requested to provide assistance in the assessment of cognitive and emotional status and to provide recommendations and services. Prior to this most recent event, he was living independently with his in their home. The patient reports they have been driving and managing instrumental activities of daily living without assistance. He has 7 children. 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 There is no reported history of treatment for anxiety or depression. TECHNIQUES UTILIZED: Clinical interview, review of medical records, staff consultation and behavioral observation, Mini-Mental status exam 2 standard version, clock drawing and family interview - . EXAMINATION FINDINGS: The patient was alert and cooperative with the assessment. He does not present with aphasia. There is no report of auditory or visual hallucinations. He is tangential and has difficulty with thought organization. The patient is frustrated with the limitations on his levels of independence. He is not able to transfer without assistance and his ability to [facility] [address] [place] [address] CONSULTATION Name: PURA LINDSEY Room #: 506-1 [facility] IN [facility].#: [id number] Admission: 07/11/17 Attend Phys: Diallo Galdamez MD Discharge: Date of : 40 Report #: [id number] swallow has been compromised so that he requires altered consistency diet. Patient is frustrated with the type of diet that he must follow and lacks insight into dysphagia. Increased anxiety and variability in mood with intermittent irritability is suggested. He also reports difficulty with sleep. Appetite is poor as he has decreased sensitivity to flavor and to smell. His performance on the MMSE 2 brief version suggests ypun-sj-cyhiudgw impairment with a raw score of 12 of 16 and a T score of 29. He is 3/3 for initial registration, 5/5 for orientation to time, 3/[address] and 1/3 for immediate recall of 3 items after a brief time delay and distraction. His performance on the MMSE 2 standard version improved to a raw score of 22 and a T score of 31, which indicates tgpk-qm-oqxupenr impairment. He was 2/5 for serial 7s, 2/2 for naming, 1/1 for repetition. He was 3/3 for auditory comprehension. He could read and follow single command and write a sentence. The patient was unable to accurately draw simple geometric design. The patient was also unable to accurately set the hands of a clock at a designated time. Suggested is impairment with immediate recall, sustained attention and concentration, executive functioning and visual spatial organization and construction. This type of impairment in cognition may partially be related to this most recent cerebrovascular accident and possibly hypoxia associated with his pulmonary status. DIAGNOSTIC IMPRESSION: Neurocognitive disorder, with intermittent irritability and decreased patience, extent to be determined, likely in the qfmx-xc-ljwiyaim range. Adjustment disorder with anxiety and depressed mood. RECOMMENDATIONS: The patient will benefit from increased flexibility from the environment to provide a greater sense of personal control. Through environmental flexibility, he will also feel others are paying attention to his personal interest and well-being. Verbal praise and complements about participation in therapies and concrete and tangible explanations of the purposes of the therapy will assist with compliance. A followup neuropsych assessment in approximately 3 months may be of benefit to clarify the extent of cognitive disorder. [address] [address] CONSULTATION Name: PURA LINDSEY Room #: 506-1 [facility] IN M.R.#: [id number] Admission: 07/11/17 Attend Phys: Diallo Galdamez MD Discharge: Date of : 40 Report #: [id number] Thank you very much for allowing me to provide the consultation on this patient. <ELECTRONICALLY SIGNED> By: Nehemiah Haas, PhD 07/19/17 1309 1255 0103 Nehemiah Haas, PhD /nt
--- NOTE | ~2017-07-06 | PLAN ---
[facility] [place] [address] REHAB UNIT PLAN OF CARE Name: PURA LINDSEY Room #: 506-1 ADM IN M.R.#: [id number] Admission: 07/11/17 Attend Phys: Diallo Galdamez MD Discharge: Date of : 40 Report #: [id number] THIS REPORT FOR: //name// CC: Diallo Giraldo DATE OF SERVICE: 07/14/2017 The patient is seen back today in followup. He is in no distress. Last recorded temperature is 97, pulse 96, respirations 22, blood pressures 87/57. No significant distress. He is continuing on nectar-thickened liquids. Contact guard for acj-he-jpnaa transfers with gait min assist 200 feet without a device. In occupational therapy, upper body dressing, supervision with lower body dressing, mod assist. ASSESSMENT: 1. Acute right parietal stroke. 2. Dysphagia with aspiration risk. He is on thin liquids, although the recommendations have been for thickened liquids. Family is understanding regarding the risks and this was further discussed with the speech therapy. He is to undergo a followup video swallow study. Pulmonary medicine is following. 3. Status post PEG tube with esophageal dilatation. Appreciate Dr. Landin's follow up with changing to night time tube feedings. 4. Chronic right-sided effusion. 5. Meirg-uw-ynkvggl respiratory failure with restrictive lung disease. 6. Pulmonary hypertension. 7. Paroxysmal atrial fibrillation. 8. Prior coronary artery bypass grafting. 9. History of renal stones. PLAN: The overall plan of care is based on the preadmission screen, post-admission physician evaluation and information gathered from therapy assessments. 1. Estimated length of stay is probably at least 10 days, maybe up to two weeks, it depends upon how he does. 2. Medical prognosis is reasonably good. 3. Anticipated interventions include the interdisciplinary acute inpatient rehabilitation program with PT, OT and speech, rehabilitation nursing assisting regarding medication management, skin care prophylaxis, bowel and bladder issues and nursing education. Case management is involved. Multiple consultants are continuing to follow. 4. Anticipated functional outcomes would be for the patient to hopefully become modified independent with transfers, mobility and ADLs ideally without gait aids with improvement in his cognition and swallowing and overall independent and medical stability, so that he can return back to the home setting. 5. Discharge destination would be back home with his . [place] [id number] REHAB UNIT PLAN OF CARE Name: PURA LINDSEY Room #: 506-1 ADM IN .R.#: [id number] Admission: 07/11/17 Attend Phys: Diallo Galdamez MD Discharge: Date of : 40 Report #: [id number] 6. Expected therapy by discipline includes PT and OT and speech 1 hour per day, each five days a week, throughout the duration of the acute inpatient rehabilitation stay. <ELECTRONICALLY SIGNED> By: Diallo Galdamez MD 07/17/17 1608 0830 0134 Diallo Galdamez MD /prince
--- NOTE | ~2017-07-06 | H ---
[facility] [place] [address] HISTORY AND PHYSICAL Name: SRAVANIPURA BARNES Room #: 506-1 ADM IN M.R.#: [id number] Admission: 07/11/17 Attend Phys: Diallo Galdmaez MD Discharge: Date of : 40 Report #: [id number] THIS REPORT FOR: //name// CC: Diallo Giraldo DATE OF SERVICE: 07/11/2017 HISTORY AND PHYSICAL AND POST-ADMISSION PHYSICIAN EVALUATION HISTORY OF PRESENT ILLNESS: The patient is a 77-year-old white male originally admitted through [facility] with increased shortness of breath. He was noted to have pneumonia, bilateral pleural effusions, respiratory failure, congestive heart failure. He was unresponsive. Neurology saw him and an MRI confirmed an acute right parietal stroke. He was noted to have dysphagia with aspiration pneumonia and was originally on nectar-thickened liquids. He underwent PEG tube on 07/08/2017. He had issues with respiratory failure, acute on chronic diastolic heart failure, severe pulmonary hypertension and pleural effusion. He was noted to have hematuria, which improved and was voiding well. He had renal stones and cysts with recommendations for followup in the office after rehab. He is noted to have a chronic right effusion. With the chronic dysphagia, aspiration risk and weight loss, he is continuing on the PEG tube feedings, although he has been started on oral intake as well including thin liquids with speech therapy involvement. His steroids have been tapered as well as antibiotics. As far as speech therapy, the patient did receive the PEG tube along with esophageal dilatation. Recommendations from speech therapy were to utilize nectar-thickened liquids but the patient has been refused seeing to consume thickened liquids. The patient's family have education and have chosen to allow the patient to drink thin liquids. Speech therapy indicates that he does appear more cautious when consuming thin liquids. He has now been cleared and has been admitted for acute in-hospital inpatient rehabilitation. PAST MEDICAL HISTORY: Includes kidney stones removal, prior coronary artery bypass grafting, history of atrial fibrillation, hypertension, right rotator cuff surgery. He has had multiple kidney stones. MEDICATIONS: Please see the full medication listing. Each of those were individually reconciled upon his admission. They include vitamins, herbal supplements. HABITS: Tobacco greater than one year, has quit alcohol, only on special location. FAMILY HISTORY: Heart disease and lung disease. SOCIAL HISTORY: Lives in a house with his , did not utilize gait aids, was [address] [address] HISTORY AND PHYSICAL Name: UPRA LINDSEY Room #: 506-1 [facility] IN ..#: [id number] Admission: 07/11/17 Attend Phys: Diallo Galdamez MD Discharge: Date of : 40 Report #: [id number] active as they went camping, and he like to go fishing. Son closely involved and apparently lives next door. would be able to give some assistance if warranted. REVIEW OF SYSTEMS: No current complaints of chest pain, shortness of breath or abdominal discomfort. He indicated again a strong dislike for honey-thickened liquids. Did not offer any focal extremity pain complaints. Did not offer any complaints of headache or bowel or bladder changes. PHYSICAL EXAMINATION: GENERAL: A 77-year-old white male, alert. He is in no distress. VITAL SIGNS: Temperature is 97.2, pulse 51, respirations 20, blood pressure 117/81. HEENT: Appeared to be benign. Facies are symmetric. Follows basic 1-step commands. He is rather slender built. CHEST: Some decreased breath sounds throughout, otherwise sounded clear. CARDIOVASCULAR: Sounded regular rate and rhythm. ABDOMEN: Bowel sounds positive, nontender. EXTREMITIES: He does have the PEG tube with dressing in place with some small serosanguineous drainage as noted. Soft. GENITOURINARY AND RECTAL: Deferred. NEUROLOGIC: He has functional range of motion of both upper extremities. Strength is a grade 4-/5, functional range of motion of the lower extremity, strength is grade 4-/5. DTRs are trace to 1. Some inconsistency with sensory testing. He has been contact guard for transfers and has been ambulating contact guard. Lower body dressing has been standby assistance. Speech therapy issues are as noted above. He is on nasal prong O2, currently at 1 liter. He tends to fatigue quickly. ASSESSMENT: A 77-year-old white male with the following problem list: 1. Acute right parietal stroke. 2. Dysphagia has had aspiration risk, is now on thin liquid. 3. Status post PEG tube with esophageal dilatation and is on tube feedings with his history of chronic dysphagia and weight loss. 4. Chronic right effusion. 5. Acute on chronic respiratory failure with chronic hypercapnia. He does have restrictive lung disease. 6. Pulmonary hypertension secondary to lung and heart disease. 7. Chronic diastolic heart failure. 8. Paroxysmal atrial fibrillation, now in sinus rhythm. 9. Prior CABG as well as remote bioprosthetic aortic valve replacement. 10. Dyslipidemia. 11. History of renal stones. He will need follow up with Urology post-discharge from rehabilitation 12. History of hematuria, which has improved. Urine is yellow and he is voiding well. [facility] [address] [place] [address] HISTORY AND PHYSICAL Name: PURA LINDSEY Room #: 506-1 ADM IN [facility].#: [id number] Admission: 07/11/17 Attend Phys: Diallo Galdamez MD Discharge: Date of : 40 Report #: [id number] PLAN: The patient is admitted for acute in-hospital inpatient rehabilitation. From a post-admission physician evaluation perspective, there are no relevant changes since the preadmission screening. Please see the above review of prior and current medical and functional conditions and comorbidities. Please see the previous and current functional status. As far as risk of complications, the patient has multiple medical comorbidities as noted above. Initial plan of care involves the interdisciplinary acute inpatient rehabilitation program. Measurable functional goals would be for the patient to become modified independent with mobility, ADLs, gait cognition, communication, swallowing, so that he can return back to the home setting. Prognosis is reasonably good. Would anticipate a fairly short length of stay, probably 7-10 days. Potential barriers would include the multiple medical comorbidities and decreased functional status. By: 1406 1456 Diallo Galdamez MD /[facility]
--- NOTE | ~2017-07-06 | EKG ---
[address] [place] [address] ELECTROCARDIOGRAM REPORT Name: PURA LINDSEY Room #: 506-1 ADM IN M.R.#: [id number] Admission: 07/11/17 Attend Phys: Diallo Galdamez MD Discharge: Date of : 40 Report #: [id number] THIS REPORT FOR: //name// [facility] Test Date: 2017-07-13 Test Time: 08:03:17 Pat Name: PURA LINDSEY Department: Room: 506 Gender: M Development Director: DARIEL : 1940 Requested By: Issa Norton Order Number: [id number] MD: Issa Norton Measurements Intervals [place] Rate: 107 P: 61 ME: 171 QRS: -39 QRSD: 108 T: 94 QT: 339 QTc: 453 Interpretive Statements Sinus tachycardia Left axis deviation Low voltage, extremity leads Probable anteroseptal infarct, old Nonspecific T abnormalities, lateral leads Compared to ECG 07/05/2017 08:12:51 Left-axis deviation now present Myocardial infarct finding now present T-wave abnormality now present Left anterior fascicular block no longer present Electronically Signed On 07-13-2017 10:58:25 CDT by Issa Norton [email or web address] <ELECTRONICALLY SIGNED> By: Issa Norton MD 07/13/17 1058 2 2 Issa Norton MD /EPI
[2017-07-09] MEDS ORDERED: ALBUTEROL2.5 MG/0.5 INH (10:48)
[2017-07-09] MEDS ORDERED: ZOSYN 3.3753.375 GM IV (10:48)
[2017-07-09] MEDS ORDERED: FLOMAX0.4 MG PO (10:48)
[2017-07-10] MEDS ORDERED: SENNA-TIME S T1 EACH PO (09:55)
[2017-07-10] MEDS ORDERED: ENOXAPARIN40 MG/0.1 SUBQ (09:55)
[2017-07-10] MEDS ORDERED: KLOR-CON M2020 MEQ PO (09:55)
[2017-07-10] MEDS ORDERED: ARTIFICIAL TEA1 EACH OPHTHALMIC (09:55)
[2017-07-10] MEDS ORDERED: PEPCID20 MG PO (09:55)
[2017-07-10] MEDS ORDERED: DEMADEX20 MG PO (09:55)
[2017-07-11 20:00] VITALS: BP 114/71
[2017-07-11 21:05] VITALS: BP 114/71
[2017-07-12 06:13] LABS: HEMATOCRIT 35.3 % (42.0-52.0); HEMOGLOBIN 11.7 gm/dL (14.0-18.0); MCHC 33.3 g/dL (28.0-37.0); MCV 90.2 fL (80.0-100.0); RBC 3.91 mil/uL (4.50-6.00); RDW 14.9 % (10.5-14.5); WBC 7.8 thou/uL (4.0-11.0)
[2017-07-12 06:21] LABS: ANION GAP < 0 mmol/L (7-16); BUN 33 mg/dL (7-18); CHLORIDE 96 mmol/L (98-107); CO2 43 mmol/L (21-32); CREATININE 0.8 mg/dL (0.7-1.3); GLUCOSE 162 mg/dL (74-106); POTASSIUM 4.6 mmol/L (3.5-5.1); SODIUM 138 mmol/L (136-145)
[2017-07-12 07:41] VITALS: BP 129/67
[2017-07-12 12:00] VITALS: BP 139/65
[2017-07-12 20:47] VITALS: BP 92/58
[2017-07-13 05:00] LABS: ANION GAP < 0 mmol/L (7-16); BUN 30 mg/dL (7-18); CALCIUM 8.9 mg/dL (8.5-10.1); CHLORIDE 94 mmol/L (98-107); CO2 43 mmol/L (21-32); CREATININE 0.9 mg/dL (0.7-1.3); GLUCOSE 229 mg/dL (74-106); POTASSIUM 5.2 mmol/L (3.5-5.1); SODIUM 134 mmol/L (136-145)
[2017-07-13 08:00] VITALS: BP 104/62
[2017-07-13 10:55] VITALS: BP 104/62
[2017-07-13 21:08] VITALS: BP 87/57
[2017-07-14 04:01] LABS: HEMATOCRIT 32.9 % (42.0-52.0); HEMOGLOBIN 11.1 gm/dL (14.0-18.0); MCH 30.5 pg (26.0-34.0); MCHC 33.6 g/dL (28.0-37.0); MCV 90.7 fL (80.0-100.0); RBC 3.63 mil/uL (4.50-6.00); RDW 14.8 % (10.5-14.5); WBC 8.9 thou/uL (4.0-11.0)
[2017-07-14 08:00] VITALS: BP 94/51
[2017-07-14 19:56] VITALS: BP 93/60
[2017-07-15 08:20] LABS: HEMATOCRIT 34.4 % (42.0-52.0); HEMOGLOBIN 11.5 gm/dL (14.0-18.0); MCH 30.1 pg (26.0-34.0); MCHC 33.5 g/dL (28.0-37.0); PLATELET COUNT 188 thou/uL (150-400); RBC 3.82 mil/uL (4.50-6.00); WBC 9.7 thou/uL (4.0-11.0)
[2017-07-15 08:21] LABS: MANUAL DIFF YES
[2017-07-15 08:37] LABS: BUN 47 mg/dL (7-18); CALCIUM 9.1 mg/dL (8.5-10.1); CHLORIDE 92 mmol/L (98-107); CREATININE 1.1 mg/dL (0.7-1.3); GLUCOSE 154 mg/dL (74-106); POTASSIUM 4.9 mmol/L (3.5-5.1); SODIUM 133 mmol/L (136-145)
[2017-07-15 08:57] LABS: CO2 > 45 mmol/L (21-32)
[2017-07-15 09:00] VITALS: BP 101/62
[2017-07-15 11:46] LABS: ABSOLUTE NEUTROPHILS 7.9 thou/uL (1.4-8.2); TOTAL CELL COUNT 100
[2017-07-15 11:47] LABS: ANISOCYTOSIS 1+; POLYCHROMASIA OCCASIONAL
[2017-07-15 20:31] VITALS: BP 96/61
[2017-07-16 08:00] VITALS: BP 99/61
[2017-07-16 20:08] VITALS: BP 91/63
[2017-07-17 05:09] LABS: ALBUMIN 2.6 g/dL (3.4-5.0); ALKALINE PHOSPHATASE 129 U/L (46-116); BUN 44 mg/dL (7-18); CALCIUM 8.5 mg/dL (8.5-10.1); CHLORIDE 93 mmol/L (98-107); CREATININE 0.9 mg/dL (0.7-1.3); GLUCOSE 128 mg/dL (74-106); MAGNESIUM 2.4 mg/dL (1.8-2.4); POTASSIUM 4.9 mmol/L (3.5-5.1); SGOT 53 U/L (15-37); SGPT 102 U/L (30-65); SODIUM 134 mmol/L (136-145); TOTAL BILIRUBIN 1.1 mg/dL (<0.1-1.0); TOTAL PROTEIN 5.7 g/dL (6.4-8.2)
[2017-07-17 05:25] LABS: CO2 > 45 mmol/L (21-32)
[2017-07-17 20:40] VITALS: BP 97/66
[2017-07-18 05:35] LABS: HEMATOCRIT 31.5 % (42.0-52.0); HEMOGLOBIN 10.5 gm/dL (14.0-18.0); MCH 30.2 pg (26.0-34.0); MCHC 33.4 g/dL (28.0-37.0); MCV 90.5 fL (80.0-100.0); PLATELET COUNT 183 thou/uL (150-400); RBC 3.48 mil/uL (4.50-6.00); RDW 15.1 % (10.5-14.5); WBC 8.7 thou/uL (4.0-11.0)
[2017-07-18 05:58] LABS: ALBUMIN 2.6 g/dL (3.4-5.0); ALKALINE PHOSPHATASE 119 U/L (46-116); BUN 42 mg/dL (7-18); CALCIUM 8.9 mg/dL (8.5-10.1); CHLORIDE 90 mmol/L (98-107); CREATININE 0.9 mg/dL (0.7-1.3); GLUCOSE 124 mg/dL (74-106); MAGNESIUM 2.5 mg/dL (1.8-2.4); POTASSIUM 4.8 mmol/L (3.5-5.1); SGOT 48 U/L (15-37); SGPT 94 U/L (30-65); SODIUM 134 mmol/L (136-145); TOTAL BILIRUBIN 1.1 mg/dL (<0.1-1.0)
[2017-07-18 06:03] LABS: CO2 > 45 mmol/L (21-32)
[2017-07-18 06:29] LABS: MANUAL DIFF YES
[2017-07-18 07:34] VITALS: BP 93/57
[2017-07-18 08:31] LABS: ABSOLUTE NEUTROPHILS 7.2 thou/uL (1.4-8.2); PLATELET ESTIMATE NORMAL; TOTAL CELL COUNT 100
[2017-07-18 19:36] VITALS: BP 88/57
[2017-07-19 08:00] VITALS: BP 83/50
[2017-07-19 20:01] VITALS: BP 128/65
[2017-07-19 20:02] VITALS: BP 83/53
[2017-07-20 05:22] LABS: BUN 54 mg/dL (7-18); CALCIUM 8.7 mg/dL (8.5-10.1); CHLORIDE 88 mmol/L (98-107); CREATININE 1.3 mg/dL (0.7-1.3); GLUCOSE 124 mg/dL (74-106); SODIUM 131 mmol/L (136-145)
[2017-07-20 05:30] LABS: CO2 > 45 mmol/L (21-32)
[2017-07-20 08:00] VITALS: BP 97/60
== END 2017-07-20 10:15 | disposition home health service (06) | DRG 64 ==
PROVIDERS: Internal Medicine Cardiovascular Disease; Internal Medicine Endocrinology, Diabetes & Metabolism; Nurse Practitioner; Physical Medicine & Rehabilitation; Specialist
DX: I63.8 Other cerebral infarction (principal); J96.22 Acute and chronic respiratory failure with hypercapnia; I50.33 Acute on chronic diastolic (congestive) heart failure; G93.40 Encephalopathy, unspecified; E43 Unspecified severe protein-calorie malnutrition; J69.0 Pneumonitis due to inhalation of food and vomit; G31.84 Mild cognitive impairment of uncertain or unknown etiology; F43.23 Adjustment disorder with mixed anxiety and depressed mood; R13.10 Dysphagia, unspecified; I48.0 Paroxysmal atrial fibrillation; I27.2 Other secondary pulmonary hypertension; E78.5 Hyperlipidemia, unspecified; R00.0 Tachycardia, unspecified; I11.0 Hypertensive heart disease with heart failure; I25.10 Atherosclerotic heart disease of native coronary artery without angina pectoris; R53.81 Other malaise; K22.2 Esophageal obstruction; D64.9 Anemia, unspecified; Z93.1 Gastrostomy status; Z95.1 Presence of aortocoronary bypass graft; Z87.442 Personal history of urinary calculi; Z87.891 Personal history of nicotine dependence; Z82.49 Family history of ischemic heart disease and other diseases of the circulatory system; Z83.6 Family history of other diseases of the respiratory system; Z95.2 Presence of prosthetic heart valve; Z68.23 Body mass index [BMI] 23.0-23.9, adult
CPT/HCPCS: 10112

== ENCOUNTER 2017-07-20 09:52 | Inpatient (IN) | payer OTHER ==
[~2017-07-20] VITALS: Ht 172.7 cm; Wt 67.1 kg
--- NOTE | ~2017-07-20 | HC ---
[facility] [place] [address] CONSULTATION Name: SRAVANIPURA BARNES Josefina Room #: 464-P ADM IN M.R.#: [id number] Admission: 07/20/17 Attend Phys: Breanna Hdz MD Discharge: Date of : 40 Report #: [id number] THIS REPORT FOR: //name// CC: Pura Hdz DATE OF SERVICE: 07/23/2017 HISTORY OF PRESENT ILLNESS: I have been asked to evaluate this 77-year-old male who is suddenly found on chest x-ray to have free air under his diaphragm. The patient had been admitted to the rehab floor following a CVA with therapy. He was readmitted back into the acute care facility with shortness of breath, dyspnea, and edema. He has a lengthy history of congestive heart failure, coronary artery disease, and atrial fibrillation. He had a PEG tube placed by GI approximately 3 weeks ago and now suddenly the patient is noted to have free air on a chest x-ray, although the PEG tube had been functioning well and the patient's gastrointestinal function ____ enteral feedings has been satisfactory. PAST MEDICAL HISTORY: Significant for coronary artery disease, congestive heart failure, recent mental status alteration, CVA, pneumonia, and respiratory failure. ALLERGIES: No known drug allergies. MEDICATIONS: Included albuterol, Flomax 0.4 mg daily, Zosyn, Lovenox, potassium chloride, Demadex, artificial tears, and Pepcid daily. PAST SURGICAL HISTORY: Noted to be kidney stone extractions, bilateral knee arthroscopy in 2001, cataract surgery in 2009, cardiac cath by Dr. Nicholas, history of atrial fibrillation, dyslipidemia, hypertension, benign prostatic hyperplasia, right rotator cuff surgery, nasal septum repair, full mouth dental extraction, coronary artery bypass grafting in 2012. FAMILY HISTORY: Heart disease and lung disease. SOCIAL HISTORY: Former smoker, having quit greater than 1 year ago, does use an alcohol on somewhat of a limited regular basis. REVIEW OF SYSTEMS: Ten-point review of systems, according to family has recently been unchanged. PHYSICAL EXAMINATION: GENERAL: Reveals a patient who is alert, cooperative, family at the bedside, in no acute distress. LUNGS: Clear at the bases bilaterally. CARDIOVASCULAR: Regular rate and rhythm. [facility] [address] [place] [address] CONSULTATION Name: PURA LINDSEY Room #: 464-P ADM IN ..#: [id number] Admission: 07/20/17 Attend Phys: Breanna Hdz MD Discharge: Date of : 40 Report #: [id number] ABDOMEN: Nondistended and nontender. PEG tube in the left upper quadrant. No guarding or rebound is noted. LABORATORY DATA: Review of the patient's laboratory demonstrates no abnormalities of recent laboratory. The chest x-rays demonstrated the free air. I would recommend proceeding with an emergent CT scan of the abdomen and pelvis looking for a possibility of bowel perforation. Clinically, the patient does not have an acute abdomen at this time. I would hold his enteral feedings and then proceed in the a.m. with possible CT of the abdomen and pelvis with water soluable contrast material. Thank you for allowing us to participate in his care and we will follow him with you. By: 1811 1929 Dmitry Katz MD, FACS /nt
--- NOTE | ~2017-07-20 | HC ---
[facility] [place] [address] CONSULTATION Name: PURA LINDSEY Room #: 464-P ADM IN M.R.#: [id number] Admission: 07/20/17 Attend Phys: Breanna Hdz MD Discharge: Date of : 40 Report #: [id number] THIS REPORT FOR: //name// CC: Pura Hdz ADDENDUM ASSESSMENT: 1. I had about a 50-minute discussion of advanced care planning today with family. We will have additional discussion in the future. They are to contact me with regards to when this may occur either or Friday. Again, the patient's family appears more amenable to rehabilitation at this time. Extensive discussion was had today with regards to options of care. 2. Parietal cerebrovascular accident with generalized debility and weakness. Again, at this time, the patient may benefit from additional therapeutic measures. I have discussed options, will present at further family meeting options of senior living facilities as the patient may no longer qualify for inpatient rehab, though at this time we will need further evaluation to see. 3. Pulmonary hypertension. Again, this contributes to his overall prognosis. The patient has not had significant improvement in his therapeutic ability; however, may benefit from continued therapy or at least evaluation, right heart catheterization confirmed, pulmonary hypertension to be at the very least moderate. 4. Acute on chronic diastolic heart failure, again contributing to his overall prognosis and I have discussed above diuresis is likely to be difficult given the diagnoses of diastolic heart failure and pulmonary hypertension. This was explained to the family and to the patient. 5. Delirium. I believe this to be mild at this time, but I do feel that it may be contributing to the patient's difficulty with understanding his current situation; however, I do feel the patient was able to grasp some of these aspects and was reluctant to disagree with family at this time. I will readdress further with full family support at a future visit. We will continue to follow. By: 2035 1046 Brady Tovar DO /nt
--- NOTE | ~2017-07-20 | EKG ---
[address] [employer] [address] ELECTROCARDIOGRAM REPORT Name: PURA LINDSEY Room #: 464- ADM IN M.R.#: [id number] Admission: 07/20/17 Attend Phys: Breanna Hdz MD Discharge: Date of : 40 Report #: [id number] THIS REPORT FOR: //name// 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
--- NOTE | ~2017-07-20 | CATHLAB ---
[facility] [address] [place] [address] INVASIVE PROCEDURE REPORT Name: PURA LINDSEY Room #: 464-P ADM IN M.R.#: [id number] Admission: 07/20/17 Attend Phys: Breanna Hdz MD Discharge: Date of : 40 Date of Service: 07/22/17 1013 Report #: [id number] THIS REPORT FOR: //name// APPROVED REPORT Patient Details Patient Status: In-Patient Room #: 464 The patient is a year-old male Event Personnel Tra Valle RN RN, Stephanie Gordon RN RN, Diana Amado RN RN, Jackeline Garcia Click, Shelly CVT Monitor, Amos Nicholas Weapons Designer Procedures Performed Right Heart Cath Only [id number] RHC Zachary Access - R femoralVen Access - R femoral vein Hemostasis with Manual pressure 06888 Initial Mod Sed Same Phys/QHP Gr5y 069464 Procedure Narrative The patient was brought urgently to the Cardiac Catheterization Laboratory and was prepped and draped in a sterile manner. The Right Groin^ was infiltrated with 1% Lidocaine subcutaneous anesthesia. A Right Heart Catheterization was performed with a 7 Fr. [place]-Jerilyn catheter and pressure were recorded. Cardiac outputs were obtained by the Thermal Dilution method. A PINNACLE 7FR Sheath #[id number] sheath was inserted into the LFV^. Coronary angiography was performed using coronary diagnostic catheters. Hemostasis was obtained with manual pressure following sheath removal without any complications. The patient tolerated the procedure well and there were no complications associated with the procedure. There was no hematoma. Intraoperative Conscious Sedation Sedation start time: 07:34 Case end Time: 07:52 Versed 1 mg Fluoro Time: 2.30 minutes Dose: DAP 964 cGycm2 32 mGy Hemodynamics The right atrial mean pressure is 27 mmHg. The right ventricular pressure is 57/7 mmHg. The pulmonary artery pressure is 69/31 mmHg with a mean of 44 mmHg. The mean pulmonary capillary wedge pressure is 24 mmHg. The cardiac output using thermo method is 3.73 L/min. The [facility] [address] [place] [address] INVASIVE PROCEDURE REPORT Name: PURA LINDSEY Room #: 464-P [facility] IN [facility]#: [id number] Admission: 07/20/17 Attend Phys: Breanna Hdz MD Discharge: Date of : 40 Date of Service: 07/22/17 1013 Report #: [id number] cardiac index using thermo method is 1.98 L/min/m2. Conclusion 1. Moderate pulmonary hyipertension with mild elevation in wedge pressure <ELECTRONICALLY SIGNED> By: Amos Nicholas MD, [facility] 07/22/17 1013 101 1013 Amos Nicholas MD, FACC /INF
--- NOTE | ~2017-07-20 | HC ---
[facility] [place] [address] CONSULTATION Name: ELIZABETHBRENTONPURA Josefina Room #: 464-P ADM IN M.R.#: [id number] Admission: 07/20/17 Attend Phys: Breanna Hdz MD Discharge: Date of : 40 Report #: [id number] THIS REPORT FOR: //name// CC: Pura Hdz PALLIATIVE CARE CONSULTATION REQUESTING PHYSICIAN: Susy Quesada MD REASON FOR CONSULT: Recurrent acute respiratory failure. HISTORY OF PRESENT ILLNESS: The patient is a 77-year-old male who was admitted through [facility] with increased shortness of breath, found to have pneumonia and also bilateral pleural effusions, acute respiratory failure, and known history of acute, now on chronic congestive heart failure, now with acute exacerbation. The patient was confirmed to have a right parietal stroke as well and noted to have dysphagia and aspiration and previously had to be on BiPAP in the intensive care unit, was subsequently received a PEG tube with PEG tube feedings. He was discharged to inpatient rehab and has been at the facility in total since July 05. He was also found to have severe pulmonary hypertension. The patient had some significant improvements with rehabilitation per family's report, he was ambulating and participating in transfers, but had recurrent pneumonia development and recurrent hypoxic respiratory failure, now requiring BiPAP. The patient reports today that he feels that his therapy has not been beneficial, although he is confused on the dates of which he arrived. Family feels that he would benefit from additional therapy at this time. The patient does appear to be confused as to timing, although he appears to be oriented to the fact that he is in the hospital and to his family members. PAST MEDICAL HISTORY: Significant for coronary artery disease, status post bypass grafting; atrial fibrillation, hypertension, and history of nephrolithiasis. PAST SURGICAL HISTORY: Coronary artery bypass grafting, right rotator cuff surgery, and multiple kidney stones, status post removal. FAMILY HISTORY: CAD and COPD. SOCIAL HISTORY: Previously living at home with his , did not utilize anything for gait ability, does have 2 daughters here at today's interview as well, did have a previous history of smoking. No significant alcohol use history in the past. ALLERGIES: No known drug allergies. [facility] [address] [place] [address] CONSULTATION Name: PURA LINDSEY Room #: 464-P [facility] IN [facility]#: [id number] Admission: 07/20/17 Attend Phys: Breanna Hdz MD Discharge: Date of : 40 Report #: [id number] MEDICATIONS: The patient was previous to admission on aspirin 81 mg daily, Lipitor 80 mg daily, metoprolol XL 25 mg daily, D3 5000 units daily, Meloxicam 7.5 mg b.i.d. and glucosamine as well as multivitamin. REVIEW OF SYSTEMS: GENERAL: The patient denies any fevers or chills. He does report generalized weakness and overall malaise and fatigue. HEENT: Denies any visual changes currently. CARDIOVASCULAR: Denies chest pain or palpitations. Does report extensive edema that is diffuse. RESPIRATORY: Does report shortness of breath, occasional wheezing, and cough. Denies distress at this time. ABDOMEN: Denies any nausea, vomiting, constipation, or diarrhea. EXTREMITIES: Again, reports diffuse edema. NEUROLOGIC: Previous confusion has somewhat cleared per the patient and per family. PHYSICAL EXAMINATION: VITAL SIGNS: On today's visit include a temperature of 36.4, pulse 102, respirations 20, blood pressure was 102/68, 98% on 4 liters of oxygen at the time of my visit rather than his BiPAP, which we took off prior to interview. GENERAL: The patient is alert to self and place. He appears to have good attention level at this time or at least some mild alteration in attention. CARDIOVASCULAR: Regular rate and rhythm without murmur. ABDOMEN: Soft, nontender to palpation, positive bowel sounds noted, although mildly diminished. PEG tube in place. RESPIRATORY: Appears to have diffuse rales in the bases bilaterally. EXTREMITIES: 1+ edema, especially left upper extremity. Bilateral lower extremities, 2+. LABS: These include hemoglobin 9.3 and platelet 133. Carbon dioxide was 45 and potassium 5.2. NT-proBNP was 3626. The pH was 7.344, CO2 was 83.7. ASSESSMENT AND PLAN: The patient is a 77-year-old male with the following concerns. Acute and recurrent respiratory failure, hypoxic and combined respiratory failure, actually acute on chronic. At this time, I have discussed options available to the patient and to the family, although the patient initially expressed that he was concerned that he was acutely dying. I did express that that he currently is under treatment for pneumonia. He does appear to be in some amount of delirium at this time. Family after discussion of options to include hospice whether inpatient or at home is much more amenable to therapy options at this time, although they are understanding that he may no longer qualify for inpatient rehab, they would like him evaluated further for this. In addition, despite the fact that he has had recurrent pneumonia and worsening of his overall condition and the explanation that this may cause him to not improve to his previous activities of daily living ability and is very [facility] [address] [place] [address] CONSULTATION Name: PURA LINDSEY Room #: 464-P ADM IN ..#: [id number] Admission: 07/20/17 Attend Phys: Breanna Hdz MD Discharge: Date of : 40 Report #: [id number] likely not to improve to that, they would like to pursue either rehab or usp at this time. I did discuss code status as well, but only briefly at this time, the patient's family seemed to be . By: 30 9 Brady Tovar DO /nt
--- NOTE | ~2017-07-20 | EKG ---
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 : 1940 Requested By: Dmitry Katz Order Number: [id number] MD: Amos Nicholas Measurements Intervals [place] Rate: 100 P: [place]: QRS: -37 QRSD: 112 T: 124 QT: 357 QTc: 461 Interpretive Statements Sinus tachycardia Borderline IVCD with LAD Poor R wave progression Compared to ECG 07/20/2017 09:12:04 Ventricular premature complex(es) no longer present Electronically Signed On 07-24-2017 9:48:29 CDT by Amos Nicholas [email or web address] <ELECTRONICALLY SIGNED> By: Amos Nicholas MD, [facility] 07/24/17 0948 1504 1504 Amos Nicholas MD, [facility] /EPI
--- NOTE | ~2017-07-20 | CATHLAB ---
[facility] [place] [address] INVASIVE PROCEDURE REPORT Name: PURA LINDSEY Room #: 464-P [facility] [place] ..#: [id number] Admission: 07/20/17 Attend Phys: Breanna Hdz MD Discharge: Date of : 40 Date of Service: 07/22/17 0907 Report #: [id number] THIS REPORT FOR: //name// CC: Pura Hdz INDICATION: Pulmonary hypertension, shortness of breath. DESCRIPTION OF PROCEDURE: The potential benefits and risks of the procedure were discussed at length with the patient who understood. Full written and informed consent was obtained. The patient was brought into the catheterization suite where his right groin was prepped and draped in a sterile fashion. He was sedated with intravenous Versed, 1% Xylocaine was used as local anesthetic. A 6-[place] sheath was placed in the right femoral vein by the modified Seldinger technique. Right heart catheterization was performed with a pigtail catheter, which was floated under fluoroscopic guidance into the main pulmonary artery. Thermodilution cardiac outputs were obtained. All catheters and tubes were removed. The patient remained in excellent condition at the conclusion of the procedure. RESULTS: RIGHT HEART HEMODYNAMICS: 1. Right atrial pressure of 28. 2. Right ventricular pressure of 58/10, pulmonary artery pressure of 63/28, pulmonary artery wedge pressure of 24, cardiac index 3.73. SUMMARY: Moderate pulmonary hypertension with mild pulmonary artery wedge pressure elevation. <ELECTRONICALLY SIGNED> By: Amos Nicholas MD, FACC 07/23/17 1727 0907 1227 Amos Nicholas MD, FACC /nt
[2017-07-20 09:46] VITALS: BP 95/60
[~2017-07-20 09:52] MED LIST changes: +ALBUTEROL2.5 MG/0.5 INH; +ARTIFICIAL TEA1 EACH OPHTHALMIC; +DEMADEX20 MG PO; +ENOXAPARIN40 MG/0.1 SUBQ; +FLOMAX0.4 MG PO; +KLOR-CON M2020 MEQ PO; +PEPCID20 MG PO; +SENNA-TIME S T1 EACH PO; +ZOSYN 3.3753.375 GM IV
[2017-07-20 16:00] VITALS: BP 81/53
[2017-07-20 19:20] VITALS: BP 88/59
[2017-07-21 04:56] LABS: HEMATOCRIT 28.7 % (42.0-52.0); HEMOGLOBIN 9.4 gm/dL (14.0-18.0); MCH 29.9 pg (26.0-34.0); MCHC 32.8 g/dL (28.0-37.0); MCV 91.1 fL (80.0-100.0); PLATELET COUNT 166 thou/uL (150-400); RBC 3.15 mil/uL (4.50-6.00); RDW 15.5 % (10.5-14.5); WBC 16.5 thou/uL (4.0-11.0)
[2017-07-21 04:58] LABS: MANUAL DIFF YES
[2017-07-21 05:00] VITALS: BP 86/52
[2017-07-21 05:03] LABS: BUN 59 mg/dL (7-18); CALCIUM 8.6 mg/dL (8.5-10.1); CHLORIDE 90 mmol/L (98-107); CREATININE 1.2 mg/dL (0.7-1.3); GLUCOSE 106 mg/dL (74-106); POTASSIUM 5.4 mmol/L (3.5-5.1); SODIUM 133 mmol/L (136-145)
[2017-07-21 05:12] LABS: CO2 > 45 mmol/L (21-32)
[2017-07-21 08:20] LABS: ABSOLUTE NEUTROPHILS 15.3 thou/uL (1.4-8.2); PLATELET ESTIMATE NORMAL; TOTAL CELL COUNT 100
[2017-07-21 09:08] VITALS: BP 84/46
[2017-07-21 12:23] LABS: ABG SAMPLE TYPE ARTERIAL; BE(vivo) 11.5 mmol/L (-2 to +3); HCO3 40.8 mmol/L (22.0-26.0); LACTATE 1.06 mmol/L (0.5-2.0); O2(CT) 14.4 mL/dL (15.0-23.0); O2Hb 95.4 % (92.0-98.0); PCO2 87.1 mmHg (35.0-45.0); PO2 97.1 mmHg (80.0-100.0); STICK SITE L.RADIAL; pH 7.289 (7.360-7.450); sO2 96.2 % (92.0-98.0); tCO2 43.5 mmol/L (24.0-30.0)
[2017-07-21 16:00] VITALS: BP 92/57
[2017-07-21 20:15] VITALS: BP 91/60
[2017-07-21 21:18] LABS: ABG SAMPLE TYPE ARTERIAL; BE(vivo) 15.9 mmol/L (-2 to +3); HCO3 44.6 mmol/L (22.0-26.0); LACTATE 1.11 mmol/L (0.5-2.0); PCO2 83.7 mmHg (35.0-45.0); PO2 116.3 mmHg (80.0-100.0); Pressure Support 12 cm H20; STICK SITE L.RADIAL; pH 7.344 (7.360-7.450); sO2 97.8 % (92.0-98.0); tCO2 47.1 mmol/L (24.0-30.0)
[2017-07-22 00:32] VITALS: BP 107/61
[2017-07-22 04:39] VITALS: BP 99/63
[2017-07-22 06:44] LABS: HEMATOCRIT 28.2 % (42.0-52.0); HEMOGLOBIN 9.3 gm/dL (14.0-18.0); MCH 30.3 pg (26.0-34.0); MCHC 32.8 g/dL (28.0-37.0); MCV 92.3 fL (80.0-100.0); RBC 3.06 mil/uL (4.50-6.00); RDW 15.6 % (10.5-14.5); WBC 9.3 thou/uL (4.0-11.0)
[2017-07-22 06:56] LABS: ALBUMIN 2.5 g/dL (3.4-5.0); BUN 59 mg/dL (7-18); CALCIUM 8.6 mg/dL (8.5-10.1); CHLORIDE 97 mmol/L (98-107); CREATININE 1.2 mg/dL (0.7-1.3); GLUCOSE 114 mg/dL (74-106); PHOSPHORUS 3.7 mg/dL (2.5-4.9); POTASSIUM 5.2 mmol/L (3.5-5.1); SODIUM 137 mmol/L (136-145); TROPONIN-I < 0.04 ng/mL (<0.04-0.07)
[2017-07-22 07:10] LABS: CO2 > 45 mmol/L (21-32)
[2017-07-22 08:29] VITALS: BP 102/68
[2017-07-22 18:08] VITALS: BP 82/50
[2017-07-22 20:21] VITALS: BP 104/69
[2017-07-23 04:20] VITALS: BP 96/62
[2017-07-23 05:12] LABS: BUN 51 mg/dL (7-18); CALCIUM 8.3 mg/dL (8.5-10.1); CHLORIDE 99 mmol/L (98-107); GLUCOSE 138 mg/dL (74-106); POTASSIUM 4.3 mmol/L (3.5-5.1); SODIUM 142 mmol/L (136-145)
[2017-07-23 05:23] LABS: CO2 > 45 mmol/L (21-32)
[2017-07-23 10:03] VITALS: BP 97/53
[2017-07-23 13:09] LABS: HEMATOCRIT 26.1 % (42.0-52.0); HEMOGLOBIN 8.8 gm/dL (14.0-18.0); MCH 31.1 pg (26.0-34.0); MCHC 33.6 g/dL (28.0-37.0); MCV 92.6 fL (80.0-100.0); RBC 2.82 mil/uL (4.50-6.00); RDW 16.7 % (10.5-14.5)
[2017-07-23 13:58] LABS: ABG SAMPLE TYPE ARTERIAL; BE(vivo) 21.6 mmol/L (-2 to +3); HCO3 50.8 mmol/L (22.0-26.0); LACTATE 0.99 mmol/L (0.5-2.0); O2Hb 96.6 % (92.0-98.0); PCO2 91.8 mmHg (35.0-45.0); PO2 109.3 mmHg (80.0-100.0); STICK SITE L.RADIAL; pH 7.361 (7.360-7.450); sO2 97.5 % (92.0-98.0); tCO2 53.6 mmol/L (24.0-30.0)
[2017-07-23 13:59] LABS: Pressure Support 12 cm H20
[2017-07-23 15:58] LABS: HEMATOCRIT 27.3 % (42.0-52.0); HEMOGLOBIN 9.1 gm/dL (14.0-18.0); MCH 30.9 pg (26.0-34.0); MCHC 33.4 g/dL (28.0-37.0); MCV 92.3 fL (80.0-100.0); RBC 2.95 mil/uL (4.50-6.00); RDW 16.2 % (10.5-14.5); WBC 8.1 thou/uL (4.0-11.0)
[2017-07-23 16:09] LABS: BUN 44 mg/dL (7-18); CALCIUM 8.3 mg/dL (8.5-10.1); CHLORIDE 100 mmol/L (98-107); GLUCOSE 117 mg/dL (74-106); POTASSIUM 3.7 mmol/L (3.5-5.1); SODIUM 145 mmol/L (136-145)
[2017-07-23 16:14] LABS: ALBUMIN 2.3 g/dL (3.4-5.0); ALKALINE PHOSPHATASE 104 U/L (46-116); SGOT 38 U/L (15-37); SGPT 55 U/L (30-65); TOTAL BILIRUBIN 1.3 mg/dL (<0.1-1.0); TOTAL PROTEIN 5.6 g/dL (6.4-8.2)
[2017-07-23 16:17] LABS: INR 1.1
[2017-07-23 16:22] LABS: CO2 > 45 mmol/L (21-32)
[2017-07-23 20:33] VITALS: BP 107/62
[2017-07-24 03:03] LABS: HEMATOCRIT 27.6 % (42.0-52.0); HEMOGLOBIN 9.1 gm/dL (14.0-18.0); MCH 30.2 pg (26.0-34.0); MCHC 32.8 g/dL (28.0-37.0); MCV 91.8 fL (80.0-100.0); RBC 3.01 mil/uL (4.50-6.00); RDW 15.9 % (10.5-14.5); WBC 6.9 thou/uL (4.0-11.0)
[2017-07-24 03:09] LABS: BUN 37 mg/dL (7-18); CALCIUM 8.4 mg/dL (8.5-10.1); CHLORIDE 102 mmol/L (98-107); CREATININE 0.9 mg/dL (0.7-1.3); GLUCOSE 92 mg/dL (74-106); POTASSIUM 3.4 mmol/L (3.5-5.1); SODIUM 147 mmol/L (136-145)
[2017-07-24 03:26] LABS: CO2 > 45 mmol/L (21-32)
[2017-07-24 05:20] VITALS: BP 102/63
[2017-07-24 08:48] VITALS: BP 132/73
[2017-07-24 17:23] VITALS: BP 137/75
[2017-07-24 20:41] VITALS: BP 116/72
[2017-07-25 05:58] LABS: HEMATOCRIT 27.4 % (42.0-52.0); HEMOGLOBIN 9.1 gm/dL (14.0-18.0); MCH 30.2 pg (26.0-34.0); MCHC 33.1 g/dL (28.0-37.0); MCV 91.3 fL (80.0-100.0); RDW 16.2 % (10.5-14.5); WBC 4.8 thou/uL (4.0-11.0)
[2017-07-25 06:04] VITALS: BP 106/63
[2017-07-25 06:06] LABS: BUN 36 mg/dL (7-18); CALCIUM 8.6 mg/dL (8.5-10.1); CHLORIDE 102 mmol/L (98-107); GLUCOSE 142 mg/dL (74-106); POTASSIUM 3.2 mmol/L (3.5-5.1); SODIUM 147 mmol/L (136-145)
[2017-07-25 06:14] LABS: CO2 > 45 mmol/L (21-32)
[2017-07-25 07:17] VITALS: BP 100/67
[2017-07-25 12:20] VITALS: BP 90/54
[2017-07-25 15:35] VITALS: BP 120/97
[2017-07-25 20:05] VITALS: BP 83/52
[2017-07-26 03:00] VITALS: BP 90/54
[2017-07-26 03:15] VITALS: BP 148/70
[2017-07-26 08:45] VITALS: BP 95/65
[2017-07-26 09:24] LABS: ALBUMIN 2.4 g/dL (3.4-5.0); BUN 31 mg/dL (7-18); CHLORIDE 103 mmol/L (98-107); GLUCOSE 144 mg/dL (74-106); PHOSPHORUS 3.8 mg/dL (2.5-4.9); POTASSIUM 3.8 mmol/L (3.5-5.1); SODIUM 148 mmol/L (136-145)
[2017-07-26 09:27] LABS: CO2 > 45 mmol/L (21-32)
[2017-07-26 17:33] VITALS: BP 98/48
[2017-07-26 19:34] VITALS: BP 84/49
[2017-07-26 23:15] VITALS: BP 98/59
[2017-07-27 04:33] VITALS: BP 93/52
[2017-07-27 05:12] LABS: ALBUMIN 2.3 g/dL (3.4-5.0); BUN 25 mg/dL (7-18); CALCIUM 9.1 mg/dL (8.5-10.1); CHLORIDE 102 mmol/L (98-107); CREATININE 0.8 mg/dL (0.7-1.3); GLUCOSE 151 mg/dL (74-106); PHOSPHORUS 3.2 mg/dL (2.5-4.9); POTASSIUM 3.5 mmol/L (3.5-5.1); SODIUM 150 mmol/L (136-145)
[2017-07-27 05:16] LABS: CO2 > 45 mmol/L (21-32)
[2017-07-27 09:00] VITALS: BP 99/62
[2017-07-27 12:14] VITALS: BP 88/58
[2017-07-27 17:40] VITALS: BP 91/58
[2017-07-27 20:00] VITALS: BP 74/59
[2017-07-28] VITALS: BP 96/54
[2017-07-28 04:00] VITALS: BP 112/54
[2017-07-28 06:49] LABS: HEMATOCRIT 27.8 % (42.0-52.0); HEMOGLOBIN 9.1 gm/dL (14.0-18.0); MCH 30.3 pg (26.0-34.0); MCHC 32.7 g/dL (28.0-37.0); MCV 92.5 fL (80.0-100.0); RBC 3.01 mil/uL (4.50-6.00); RDW 16.1 % (10.5-14.5); WBC 5.3 thou/uL (4.0-11.0)
[2017-07-28 06:58] LABS: ALBUMIN 2.3 g/dL (3.4-5.0); BUN 23 mg/dL (7-18); CALCIUM 9.2 mg/dL (8.5-10.1); CHLORIDE 102 mmol/L (98-107); CREATININE 0.8 mg/dL (0.7-1.3); GLUCOSE 131 mg/dL (74-106); PHOSPHORUS 2.8 mg/dL (2.5-4.9); POTASSIUM 3.9 mmol/L (3.5-5.1); SODIUM 147 mmol/L (136-145)
[2017-07-28 07:03] LABS: CO2 > 45 mmol/L (21-32)
[2017-07-28 08:14] LABS: ABG SAMPLE TYPE ARTERIAL; BE(vivo) 22.1 mmol/L (-2 to +3); HCO3 48.8 mmol/L (22.0-26.0); LACTATE 0.92 mmol/L (0.5-2.0); O2Hb 90.2 % (92.0-98.0); STICK SITE L.RADIAL; pH 7.493 (7.360-7.450); sO2 92.9 % (92.0-98.0); tCO2 50.8 mmol/L (24.0-30.0)
[2017-07-28 08:38] VITALS: BP 111/68
[2017-07-28 15:51] VITALS: BP 111/68
[2017-07-28 16:52] VITALS: BP 89/52
[2017-07-28 20:09] VITALS: BP 97/57
[2017-07-29 03:19] VITALS: BP 98/53
[2017-07-29 08:17] VITALS: BP 100/65
[2017-07-29 08:41] VITALS: BP 100/65
[2017-07-29] MEDS ORDERED: AUGMENTIN400 MG/53 PER TUBE (11:22)
[2017-07-29] MEDS ORDERED: CARDURA4 MG PER TUBE (11:23)
[2017-07-29] MEDS ORDERED: DEMADEX20 MG PO (11:23)
[2017-07-29] MEDS ORDERED: ALBUTEROL2.5 MG/0.5 INH (11:42)
[2017-07-29] MEDS ORDERED: ADULT TUSS100 MG/5 M PER TUBE (11:42)
== END 2017-07-29 15:20 | disposition home health service (06) | DRG 286 ==
LOC: 4S 09:52 → 4W 07-21 19:57 → ENTRNSPT 07-29 14:19 → EDTRNSPTSTS 07-29 14:22 → 4W 07-29 15:20
PROVIDERS: Hospitalist; Internal Medicine; Internal Medicine Endocrinology, Diabetes & Metabolism; Internal Medicine Gastroenterology; Internal Medicine Pulmonary Disease; Surgery
DX: I13.0 Hypertensive heart and chronic kidney disease with heart failure and stage 1 through stage 4 chronic kidney disease, or unspecified chronic kidney disease (principal); J69.0 Pneumonitis due to inhalation of food and vomit; I50.33 Acute on chronic diastolic (congestive) heart failure; J96.21 Acute and chronic respiratory failure with hypoxia; J96.22 Acute and chronic respiratory failure with hypercapnia; N17.9 Acute kidney failure, unspecified; E44.0 Moderate protein-calorie malnutrition; E87.0 Hyperosmolality and hypernatremia; N18.9 Chronic kidney disease, unspecified; I27.2 Other secondary pulmonary hypertension; E78.5 Hyperlipidemia, unspecified; N40.0 Benign prostatic hyperplasia without lower urinary tract symptoms; I48.0 Paroxysmal atrial fibrillation; K22.8 Other specified diseases of esophagus; R04.0 Epistaxis; I25.10 Atherosclerotic heart disease of native coronary artery without angina pectoris; Z95.1 Presence of aortocoronary bypass graft; Z87.442 Personal history of urinary calculi; Z86.73 Personal history of transient ischemic attack (TIA), and cerebral infarction without residual deficits; Z87.891 Personal history of nicotine dependence; Z98.42 Cataract extraction status, left eye; Z98.41 Cataract extraction status, right eye; Z95.2 Presence of prosthetic heart valve; Z68.22 Body mass index [BMI] 22.0-22.9, adult; Z82.49 Family history of ischemic heart disease and other diseases of the circulatory system; Z82.5 Family history of asthma and other chronic lower respiratory diseases
CPT/HCPCS: 10045; 10100